=== PATIENT | female | born 1970 | race Caucasian/White ===

== ENCOUNTER 2017-07-09 12:14 | Inpatient (IN) | payer OTHER ==
[~2017-07-09] VITALS: Ht 165.1 cm; Wt 61.6 kg
[2017-07-09] MEDS ORDERED: ONDANSETRON 4 MG INJ IV STA (12:54)
[2017-07-09] MEDS ORDERED: SOD CHLORIDE 0.9% 1,000 ML IV STA (12:54)
[2017-07-09] MEDS ORDERED: PANTOPRAZOLE IV 80 MG in SOD CHLORIDE 0.9% 100 ML IVPB STA (12:54)
[2017-07-09] MEDS ORDERED: OCTREOTIDE 500 MCG in SOD CHLORIDE 0.9% 49 ML IV STA (12:54)
[2017-07-09] MEDS ORDERED: PANTOPRAZOLE IV 80 MG in SOD CHLORIDE 0.9% 100 ML IV STA (12:54)
[2017-07-09] MEDS ORDERED: OCTREOTIDE 50 MCG in SOD CHLORIDE 0.9% 25 ML IVPB STA (12:54)
--- NOTE | 2017-07-09 13:31 | RADRPT ---
PROCEDURE: XR Chest. CLINICAL INDICATION: Abdominal pain TECHNIQUE: Single frontal view of the chest was obtained COMPARISON: None FINDINGS: The heart and mediastinum are within normal limits. The lungs are grossly clear. The right hemidiaphragm is mildly elevated. There is no pleural effusion or pneumothorax. The bones and soft tissue show no acute change. IMPRESSION: 1. Very hypoventilatory study without acute abnormality. 2. The right hemidiaphragm is mildly elevated. RPTAT:AAJJ Physician Carlos Date Time Electronically viewed and signed by Qamar Johnson Physician on 07/09/2017 13:31 /
[2017-07-09 13:51] LABS: ABNORMAL IP MESSAGE 1; HEMOGLOBIN 7.8 g/dl (12.0-16.0); MEAN CORPUSCULAR HEMOGLOBIN 32.1 pg (29.0-33.0); MEAN CORPUSCULAR HGB CONC 33.9 g/dl (32.0-37.0); MEAN CORPUSCULAR VOLUME 94.7 fl (82.0-101.0); MEAN PLATELET VOLUME 10.5 fl (7.4-10.4); PLATELET COUNT 144 10^3/UL (140-415); RED BLOOD COUNT 2.43 10^6/ul (4.20-5.40); RED CELL DISTRIBUTION WIDTH 17.8 % (11.5-14.5); WHITE BLOOD COUNT 35.1 10^3/ul (4.8-10.8)
[2017-07-09 13:59] LABS: POSITIVE DIFF @See below
[2017-07-09 14:05] LABS: INR 2.87; PROTIME 30.5 Sec (12.2-14.2); PT RATIO 2.4
[2017-07-09 14:06] LABS: PARTIAL THROMBOPLASTIN TIME 54.4 Sec (25.0-35.0)
[2017-07-09 14:08] LABS: ALANINE AMINOTRANSFERASE 49 IU/L (13-69); ALBUMIN 2.7 g/dl (3.3-4.9); ALBUMIN/GLOBULIN RATIO 0.55; ALKALINE PHOSPHATASE 357 IU/L (42-121); ANION GAP 21 (8-16); ASPARTATE AMINO TRANSFERASE 63 IU/L (15-46); BILIRUBIN,TOTAL 19.9 mg/dl (0.2-1.3); BLOOD UREA NITROGEN 40 mg/dl (7-20); CALCIUM 8.3 mg/dl (8.4-10.2); CARBON DIOXIDE 16 mmol/L (21-31); CHLORIDE 106 mmol/L (97-110); CREATININE 1.89 mg/dl (0.44-1.00); GLUCOSE 91 mg/dl (70-220); SODIUM 140 mmol/L (135-144); TOTAL PROTEIN 7.6 g/dl (6.1-8.1)
[2017-07-09 14:20] LABS: TROPONIN-I < 0.012 ng/ml (0.00-0.12)
[2017-07-09] MEDS ORDERED: LIDOCAINE 1% (MPF) 5 ML VIAL SC ONE (14:30)
[2017-07-09] MEDS ORDERED: PANT40TA4 PO (14:41)
[2017-07-09] MEDS ORDERED: MULTI PO (14:41)
[2017-07-09] MEDS ORDERED: PRED20TA PO (14:42)
[2017-07-09] MEDS ORDERED: SPIR25TA PO (14:42)
[2017-07-09] MEDS ORDERED: LACT20SO2 PO (14:43)
[2017-07-09] MEDS ORDERED: FURO20TA3 PO (14:43)
[2017-07-09 14:49] LABS: ANISOCYTOSIS 2+ (0-0); MONOCYTES % (M) 3 % (0-11); PLATELET ESTIMATE NORMAL; POIKILOCYTOSIS 3+ (0-0); POLYCHROMASIA 3+ (0-0); RBC MORPHOLOGY COMMENT @See below
[2017-07-09] MEDS ORDERED: SODIUM CHLORIDE 0.9% 1L BAG IV* STA (16:21)
[2017-07-09] MEDS ORDERED: CEFEPIME 2GM/50 ML (PMX) 50 ML IVPB STA (16:21)
--- NOTE | 2017-07-09 16:25 | RADRPT ---
PROCEDURE: Chest x-ray CLINICAL INDICATION: PICC line placement TECHNIQUE: Chest single view COMPARISON: 07/09/2017 FINDINGS: There is interval placement left arm PICC line with tip at the right atrial SVC junction. The heart is normal in size. The pulmonary vessels are normal in caliber. There is persistent elevation righ t hemidiaphragm with mild basilar atelectasis. Lungs otherwise clear. The costophrenic angles are s harp. The visualized bony thorax is unremarkable. IMPRESSION: 1. Interval placement left arm PICC line with tip at the right atrial SVC junction RPTAT: HH .Jerrell Calixto MD, MD Date Time Electronically viewed and signed by .Jerrell Calixto MD, on 07/09/2017 16:25 .W/
[2017-07-09] MEDS ORDERED: VANCOMYCIN 1 GM (PMX) 250 ML IVPB ONE (16:30)
[2017-07-09] MEDS ORDERED: SOD CHLORIDE 0.9% 100 ML ONE (16:39)
--- NOTE | 2017-07-09 16:42 | RADRPT ---
PROCEDURE: US guidance for PICC line CLINICAL INDICATION: PICC line placement TECHNIQUE: Multiple real-time images were acquired of the patient's arm utilizing a high resolutio n transducer. This was performed by the PICC line nurse for venous access. COMPARISON: None FINDINGS: See impression. IMPRESSION: Ultrasound guidance for PICC line placement. There is a patent and compressible left upper extremity vein. RPTAT: AA Physician Patito Date Time Electronically viewed and signed by Russell Chan Physician on 07/09/2017 16:41 /
[2017-07-09 18:30] VITALS: TEMP 97.5
--- NOTE | 2017-07-09 19:01 | ERD ---
ER Documentation Chief Complaint Chief Complaint hypotension; generalized weakness; rectal bleed HPI This is a 47-year-old female with a history of liver cirrhosis and jaundice due to alcohol abuse. The patient is here because she had 2-3 episodes of bloody diarrhea today. The diarrhea was dark on 2 episodes in outsole caser color on one. She says she has no abdominal pain no fevers no cough no dysuria. She says she feels generally weak. The patient says that she was admitted at an outside hospital a few weeks ago for rectal bleeding and she underwent a colonoscopy and EGD which we do not know the results of nor does the patient. She denies any recent illness or fever says that she feels like her jaundice is getting worse. Addendum: Paperwork was obtained from [facility] the patient had bleeding esophageal varices with banding with alcoholic liver cirrhosis and autoimmune hepatitis as well as lactic acidosis on a stay at [facility] on June 22, 2017. She is currently taking Lasix, lactulose, pantoprazole, prednisolone, multivitamin, spironolactone ROS All systems reviewed and are negative except as per history of present illness. Medications Home Meds Reported Medications Furosemide* (Furosemide*) 20 Mg Tablet, 20 MG PO DAILY, #60 TAB 07/09/17 Lactulose* (Lactulose*) 20 Gm/30 Ml Solution, 20 GM PO BID, ML 07/09/17 Prednisone* (Prednisone*) 20 Mg Tab, 20 MG PO DAILY, TAB 07/09/17 Spironolactone* (Aldactone*) 25 Mg Tablet, 25 MG PO DAILY, #30 TAB 07/09/17 Multivitamins* (Theragran*) 1 Tab Tab, 1 TAB PO DAILY, TAB 07/09/17 Pantoprazole* (Pantoprazole*) 40 Mg Tablet.dr, 40 MG PO AC BREAKFAST, TAB 07/09/17 Allergies Allergies: Coded Allergies: No Known Allergy (Unverified , 07/09/17) PMhx/Soc Medical and Surgical Hx: pt denies Surgical Hx History of Surgery: No Hx Miscellaneous Medical Probl: Yes (LIVER CIRRHOSIS) Hx Alcohol Use: Yes (USED TO) Hx Substance Use: No Hx Tobacco Use: No Smoking Status: Former smoker FmHx Family History: No coronary disease Physical Exam Vitals Vital Signs Date Time Temp Pulse Resp B/P Pulse Ox O2 Delivery O2 Flow Rate FiO2 07/09/17 18:30 97.5 82 18 90/57 99 Nasal Cannula 2.0 07/09/17 18:00 97.9 79 16 87/58 98 Room Air 07/09/17 15:53 97.9 80 16 76/54 98 Room Air 07/09/17 14:38 97.9 81 16 68/48 98 07/09/17 12:34 97.2 105 18 75/47 98 Physical Exam Const: [Well-developed, cachectic Head: Atraumatic, normocephalic Eyes: Normal Conjunctiva, PERRLA, EOMI, icteric sclera, no nystagmus ENT: Normal External Ears, Nose and Mouth, moist mucus membranes. Neck: Full range of motion. No meningismus, no lymphadenopathy. Resp: Clear to auscultation bilaterally, no wheezing, rhonchi, rales Cardio: Regular rate and rhythm, no murmurs, S1 S2 present Abd: Soft, non tender x 4, distended. Ascites normal bowel sounds, no guarding or rebound, no pulsitile abdominal masses or bruits Skin: No petechiae or rashes, no ecchymosis , no maculopapular rash, jaundice Back: No midline or flank tenderness Ext: No cyanosis, +1 edema, FROM x 4, normal inspection, neurovascularly intact x 4 Neur: Awake and alert, STR 5/5 x 4, sensation intact x 4, no focal findings, cerebellum intact Psych: Normal Mood and Affect Result Diagram: 07/09/17 1330 07/09/17 1330 Results 24 hrs Laboratory Tests Test 07/09/17 13:30 07/09/17 16:40 White Blood Count 35.110^3/ul Red Blood Count 2.4310^6/ul Hemoglobin 7.8g/dl Hematocrit 23.0% Mean Corpuscular Volume 94.7fl Mean Corpuscular Hemoglobin 32.1pg Mean Corpuscular Hemoglobin Concent 33.9g/dl Red Cell Distribution Width 17.8% Platelet Count 25728^3/UL Mean Platelet Volume 10.5fl Neutrophils % % Segmented Neutrophils % (Manual) 88% Band Neutrophils % (Manual) 7% Lymphocytes % % Lymphocytes % (Manual) 2% Monocytes % % Monocytes % (Manual) 3% Eosinophils % % Basophils % % Nucleated Red Blood Cells % 0.0/100WBC Neutrophils # 10^3/ul Neutrophils # (Manual) 31.710^3/ul Band Neutrophils # 2.410^3/ul Absolute Lymphocytes (Manual) 0.710^3/ul Lymphocytes # 10^3/ul Monocytes # 10^3/ul Absolute Monocytes (Manual) 1.010^3/ul Eosinophils # 10^3/ul Basophils # 10^3/ul Nucleated Red Blood Cells # 10^3/ul White Cell Morphology Comment @See below Platelet Estimate NORMAL Polychromasia 3+ Poikilocytosis 3+ Anisocytosis 2+ Macrocytosis 2+ Red Cell Morphology Comment @See below Prothrombin Time 30.5Sec Prothrombin Time Ratio 2.4 INR International Normalized Ratio 2.87 Activated Partial Thromboplast Time 54.4Sec Sodium Level 140mmol/L Potassium Level 3.0mmol/L Chloride Level 106mmol/L Carbon Dioxide Level 16mmol/L Anion Gap 21 Blood Urea Nitrogen 40mg/dl Creatinine 1.89mg/dl Glucose Level 91mg/dl Calcium Level 8.3mg/dl Total Bilirubin 19.9mg/dl Direct Bilirubin 16.90mg/dl Indirect Bilirubin 3.0mg/dl Aspartate Amino Transf (AST/SGOT) 63IU/L Alanine Aminotransferase (ALT/SGPT) 49IU/L Alkaline Phosphatase 357IU/L Troponin I < 0.012ng/ml Total Protein 7.6g/dl Albumin 2.7g/dl Globulin 4.90g/dl Albumin/Globulin Ratio 0.55 Lactic Acid Level 2.9mmol/L Current Medications Medications (Trade) Dose Ordered Sig/Chris Route PRN Reason Start Time Stop Time Status Last Admin Dose Admin Sodium Chloride 1,000 ml @ 1,000 mls/hr Q1H STAT IV 07/09/17 12:54 07/09/17 13:53 DC 07/09/17 13:55 Pantoprazole 80 mg/Sodium Chloride 100 ml @ 400 mls/hr ONCE STAT IVPB 07/09/17 12:54 07/09/17 13:08 DC 07/09/17 13:56 Pantoprazole 80 mg/Sodium Chloride 100 ml @ 10 mls/hr ONCE STAT IV 07/09/17 12:54 07/09/17 22:53 07/09/17 14:24 Octreotide Acetate 50 mcg/ Sodium Chloride 26 ml @ 100 mls/hr Q16M STAT IVPB 07/09/17 12:54 07/09/17 13:09 DC 07/09/17 13:56 Octreotide Acetate/Sodium Chloride (Sandostatin/NS) 50 ml @ 5 mls/hr ONCE STAT IV 07/09/17 12:54 07/09/17 22:53 07/09/17 14:25 Ondansetron HCl (Zofran Inj) 4 mg ONCE STAT IV 07/09/17 12:54 07/09/17 13:01 DC 07/09/17 13:56 Lidocaine (Xylocaine 1% (Mpf)) 5 ml ONCE ONCE SC 07/09/17 14:30 07/09/17 14:31 DC 07/09/17 16:00 Sodium Chloride 1900 ml 1,900 ml BOLUS OVER 2 HOURS STAT IV* 07/09/17 16:21 07/09/17 16:22 DC 07/09/17 17:25 Cefepime HCl 50 ml @ 100 mls/hr ONCE STAT IVPB 07/09/17 16:21 07/09/17 16:50 DC 07/09/17 17:25 Vancomycin HCl 250 ml @ 125 mls/hr ONCE ONCE IVPB 07/09/17 16:30 07/09/17 18:29 DC 07/09/17 18:13 Sodium Chloride (NS) 100 ml @ ud STK-MED ONCE .ROUTE 07/09/17 16:39 07/09/17 16:40 DC 07/09/17 16:20 IV Flush (NS 10 ml) 10 ml PRN PRN IV IV PROTOCOL 07/09/17 17:00 Procedures/MDM PROCEDURE: XR Chest. CLINICAL INDICATION: Abdominal pain TECHNIQUE: Single frontal view of the chest was obtained COMPARISON: None FINDINGS: The heart and mediastinum are within normal limits. The lungs are grossly clear. The right hemidiaphragm is mildly elevated. There is no pleural effusion or pneumothorax. The bones and soft tissue show no acute change. IMPRESSION: 1. Very hypoventilatory study without acute abnormality. 2. The right hemidiaphragm is mildly elevated. RPTAT:AAJJ Qamar Johnson, Physician Date Time Electronically viewed and signed by Qamar Johnson Physician on 07/09/2017 13: 31 MC/ CC: LUNA TAN DO The patient was put on a Protonix drip and octreotide drip. The patient is having low blood pressure without tachycardia. The patient is on liter #2 right now. The patient's lactate is elevated at 2.9 patient is getting sepsis protocol antibiotics and IV fluids and blood cultures. The she has elevated white blood count of 35,000. Multiple repeat abdominal exams the patient has no abdominal pain whatsoever to be concerning for SBP. Urinalysis is currently pending.. Patient's acidotic low CO2 with prerenal azotemia. Patient is anemic with a hemoglobin of 7.1. She is received 2 units of packed red blood cells Patient's blood pressures been running in the 70-80 systolic. Heart rate has been in the 80s. Will continue some IV fluids first before starting pressors which is likely to come soon. I have called Dr. Sharp with GI to consult him on the case. We will order CAT scan to rule out any abdominal pathology and that she has no belly pain. Critical Care Time: 45 minutes Treatments/Evaluations: Close monitoring and treatment of unstable vital signs, cardiorespiratory, and neurologic status, while maintaining tight balance of fluid, respiratory, and cardiac interventions. This time includes discussing the case with the patient and the patient's family. This time does not include all procedures stated elsewhere in this record. This time also includes reviewing old records, labs and radiological studies. This time includes examining and re-examining the patient. Additionally, this time also includes arranging care with admitting and consulting physicians. PROCEDURE: Chest x-ray CLINICAL INDICATION: PICC line placement TECHNIQUE: Chest single view COMPARISON: 07/09/2017 FINDINGS: There is interval placement left arm PICC line with tip at the right atrial SVC junction. The heart is normal in size. The pulmonary vessels are normal in caliber. There is persistent elevation right hemidiaphragm with mild basilar atelectasis. Lungs otherwise clear. The costophrenic angles are sharp. The visualized bony thorax is unremarkable. IMPRESSION: 1. Interval placement left arm PICC line with tip at the right atrial SVC junction RPTAT: HH .Jerrell Calixto MD, MD Date Time Electronically viewed and signed by .Jerrell Calixto MD, on 07/09/2017 16:25 .W/ CC: LUNA TAN DO Departure Diagnosis: Primary Impression: Hypotension Hypotension type: unspecified hypotension type Qualified Code: I95.9 - Hypotension, unspecified hypotension type Additional Impressions: GI bleed GI bleed type/associated pathology: unspecified gastrointestinal hemorrhage type Qualified Code: K92.2 - Gastrointestinal hemorrhage, unspecified gastrointestinal hemorrhage type Leukocytosis Leukocytosis type: unspecified Qualified Code: D72.829 - Leukocytosis, unspecified type Condition: Serious LUNA TAN DO Jul 09, 2017 18:59
[2017-07-09] MEDS ORDERED: NORepinephrine 8MG/250 ML (PMX 250 ML IV STA (19:07)
[2017-07-09] MEDS ORDERED: NACL 0.9% 3 ML SYG IV SCH (20:00)
[2017-07-09] MEDS ORDERED: morphine 2 MG INJ IV PRN (20:00)
[2017-07-09] MEDS ORDERED: POTASSIUM CHLORIDE 250 ML IVPB ONE (20:00)
[2017-07-09] MEDS ORDERED: ONDANSETRON 4 MG INJ IV PRN (20:00)
[2017-07-09] MEDS: OCTREOTIDE 1 MG in SOD CHLORIDE 0.9% 95 ML IV SCH (20:30)
[2017-07-09] MEDS: PANTOPRAZOLE IV 80 MG in SOD CHLORIDE 0.9% 100 ML IV SCH (20:30)
--- NOTE | 2017-07-09 21:55 | RADRPT ---
PROCEDURE: CT Abdomen and Pelvis without contrast. CLINICAL INDICATION: Abdominal pelvic pain. Abdominal distension. Ascites. TECHNIQUE: CT scan of the abdomen and pelvis without contrast was performed on a multi-detector hi gh-resolution CT scanner. The patient was scanned without IV contrast. Coronal and sagittal reformat hortencia images were obtained from the axial source images. CTDI equals 13.78 mGy, and DLP equals 876.45 mGy-cm. One or more of the following dose reduction techniques were used: - Automated exposure control. - Adjustment of the mA and/or kV according to patient size. - Use of iterative reconstruction technique. COMPARISON: None. FINDINGS: Lower thorax: Patchy infiltration in the right middle lobe, left lingula, and lower lungs bilaterall y. Marked cardiomegaly with a small pericardial effusion. Moderate asymmetric elevation of the right hemidiaphragm. Central line is in place with the tip going down to the right atrium. Liver: Grossly unremarkable. No focal mass. Biliary: Tiny layering sludge and stones. No biliary dilatation. Pancreas: Normal. Spleen: Normal. Adrenal Glands: Normal. Genitourinary: Normal. Gastrointestinal: Significant abnormal circumferential thickening and edema of the wall of the stoma ch. Mild edema of the wall of the C-loop of the duodenum. Significant thickening of the wall of the colon. Evaluation is limited due to lack of oral and IV contrast. Lymph nodes: Normal. Vascular: Normal. Peritoneum/mesentery: Large volume abdominal pelvic ascites with distension of the abdominal cavity. Severe diffuse mesenteric engorgement and edema. Diffuse edema of the abdominal omentum as well. Reproductive organs: Massive enlargement and nodularity of the uterus with a large dominant 14.6 cm mass lesion, likely due to multiple large uterine fibroids. Musculoskeletal: Mild third spacing and edema of the subcutaneous tissues of the abdominal pelvic wa ll and hips and upper thighs. IMPRESSION: 1. Massive abdominal pelvic ascites with severe diffuse omental and mesenteric edema. 2. Thickening and edema of the wall of the stomach, C-loop of the duodenum, and portions of the lar ge bowel. Further evaluation is warranted. 3. Large mass lesion with multilobulated nodular thickening and enlargement of the uterus, likely d ue to an enlarged leiomyomatous uterus. The ovaries are not well visualized. 4. Third spacing and edema of the subcutaneous tissues of the body. 5. Patchy infiltration within the visualized lungs bilaterally. Atelectasis is most likely. Superim posed pneumonia is not entirely excluded. 6. Cardiomegaly with small circumferential pericardial effusion. RPTAT: HMJB .Godwin Moyer MD, Date Time Electronically viewed and signed by .Godwin Moyer MD, on 07/09/2017 21:54 .B/
[2017-07-09 23:15] VITALS: PULSE 89
[2017-07-09 23:32] VITALS: Ht 165.1 cm; Wt 61.6 kg
[2017-07-10] VITALS (87 sets, daily range): BP systolic 77–124; BP diastolic 41–106; PULSE 69–101; RESP 14–35
[2017-07-10] MEDS: D5W-0.45 NACL + KCL 20 MEQ 1,000 ML IV SCH ×3 (00:01→12:50)
[2017-07-10] MEDS ORDERED: NORepinephrine 8MG/250 ML (PMX 250 ML IV SCH (05:30)
[2017-07-10 05:37] LABS: ABNORMAL IP MESSAGE 1; BASOPHIL # 0.1 10^3/ul (0.0-0.1); BASOPHILS % 0.3 % (0.0-2.0); EOSINOPHILS % 0.1 % (0.0-7.0); HEMATOCRIT 27.8 % (37.0-47.0); HEMOGLOBIN 9.9 g/dl (12.0-16.0); LYMPHOCYTES # 0.7 10^3/ul (0.8-2.9); LYMPHOCYTES % 1.8 % (15.0-51.0); MEAN CORPUSCULAR HGB CONC 35.6 g/dl (32.0-37.0); MEAN CORPUSCULAR VOLUME 87.1 fl (82.0-101.0); MEAN PLATELET VOLUME 10.4 fl (7.4-10.4); MONOCYTE # 1.4 10^3/ul (0.3-0.9); MONOCYTES % 3.6 % (0.0-11.0); NEUTROPHIL # 36.1 10^3/ul (1.6-7.5); PLATELET COUNT 143 10^3/UL (140-415); RED BLOOD COUNT 3.19 10^6/ul (4.20-5.40); RED CELL DISTRIBUTION WIDTH 19.3 % (11.5-14.5); WHITE BLOOD COUNT 38.9 10^3/ul (4.8-10.8)
[2017-07-10 05:41] LABS: NEUTROPHILS % 92.7 % (39.0-77.0); POSITIVE DIFF @See below
[2017-07-10 06:07] LABS: ALBUMIN 2.4 g/dl (3.3-4.9); ALBUMIN/GLOBULIN RATIO 0.55; BILIRUBIN,INDIRECT 2.8 mg/dl (0-1.1); CALCIUM 7.6 mg/dl (8.4-10.2); CREATININE 1.7 mg/dl (0.44-1.00); MAGNESIUM 1.7 mg/dl (1.7-2.5); PHOSPHORUS 5.7 mg/dl (2.5-4.9); TOTAL PROTEIN 6.7 g/dl (6.1-8.1)
[2017-07-10 06:16] LABS: BILIRUBIN,DIRECT 15.4 mg/dl (0.00-0.20); BILIRUBIN,TOTAL 18.2 mg/dl (0.2-1.3)
[2017-07-10] MEDS: PANTOPRAZOLE IV 80 MG in SOD CHLORIDE 0.9% 100 ML IV SCH ×2 (06:18→17:29)
[2017-07-10] MEDS ORDERED: ALBUMIN HUMAN 25% 100 ML IV SCH (07:00)
--- NOTE | 2017-07-10 07:03 | HP ---
Date/Time of Note Date/Time of Note DATE: 07/10/17 TIME: 06:45 Assessment/Plan VTE Prophylaxis VTE Prophylaxis Intervention: SCD's Lines/Catheters IV Catheter Type (from [facility]): Peripheral IV Urinary Cath still in place: No Assessment/Plan Assessment/Plan This is a 47-year-old female with a history of decompensated alcoholic liver disease/cirrhosis with ascites and esophageal varices status post recent banding , and questionable 3 of autoimmune hepatitis presents with rectal bleeding and found to be in septic shock, severely elevated bilirubin, renal insufficiency and pneumonia. 1. Shock, combination of septic from pneumonia and possible SBP as well as hypovolemic from rectal bleeding -Continue pressure support as needed -Broad-spectrum IV antibiotics -Urine culture, blood culture and once shock improves, paracentesis for diagnostic and therapeutic purposes -ID consult 2. GI bleed -Continue blood transfusion -Protonix and octreotide drip -GI consult -Notes that patient underwent EGD 2 weeks ago at [facility] with finding of esophageal varices and is status post banding 3. End-stage liver disease, with severely elevated bilirubin, direct predominant -Will order MRCP to evaluate for obstructive process -GI consult -Once shock improves/results, paracentesis will be performed 4. Presumed [place], most likely from volume depletion from septic shock -will give albumin -Continue pressure support -Renal ultrasound and nephrology consult HPI/ROS Admit Date/Time Admit Date/Time Jul 09, 2017 at 19:46 Hx of Present Illness This is a 47-year-old female with a history of decompensated end-stage alcoholic liver disease/cirrhosis with ascites and esophageal varices, questionable autoimmune hepatitis who presented to the ER complaining of rectal bleeding, generalized weakness and jaundice. Patient was admitted at [facility] 2 weeks ago for rectal bleeding. EGD showed esophageal varices and as she is status post banding. For the past 2 days, she has been having bloody diarrhea and has been feeling weak. When she presented to the ER, she was hypotensive with a blood pressure of 75/ 47 with a heart rate of 105. She has a multiple lab abnormalities including WBC of 35,000, hemoglobin 7.8, creatinine 1.9, BUN 40, bicarb 16, INR 2.9, total bilirubin of almost 20 was direct bilirubin of 17, alk phos 357, AST 63, potassium 3.0. CT abdomen/pelvis shows massive ascites, large leiomyomatous uterus and bilateral patchy infiltrate of the lungs with probable superimposed pneumonia. PMH/Family/Social Social History Smoking Status: Former smoker Exam/Review of Systems Vital Signs Vitals Vital Signs Date Time Temp Pulse Resp B/P Pulse Ox O2 Delivery O2 Flow Rate FiO2 07/10/17 06:00 88 24 87/65 100 Room Air 07/10/17 04:00 98.0 07/10/17 02:00 2.0 Intake and Output 07/09/17 07/09/17 07/10/17 15:00 23:00 07:00 Intake Total 897.745 ml Balance 897.745 ml Exam Constitutional: other (Appears weak. Jaundiced) Eyes: icteric Respiratory: diminished breath sounds Cardiovascular: other (Tachycardic with regular rhythm) Gastrointestinal: distended, tender Labs Result Diagram: 07/10/17 0500 07/10/17 0500 Medications Medications Current Medications IV Flush 10 ml 10 ml PRN PRN IV IV PROTOCOL; Start 07/09/17 at 17:00 Potassium Chloride/Dextrose/ Sod Cl (D5-1/2ns + KCl 20 Meq) 1,000 ml @ 100 mls/ hr Q10H IV Last administered on 07/10/17 00:01; Admin Dose 100 MLS/HR; Start 07/09/17 at 19:42 Ondansetron HCl (Zofran Inj) 4 mg Q6H PRN IV NAUSEA AND/OR VOMITING; Start 07/09/17 at 20:00 Morphine Sulfate 2 mg 2 mg Q4H PRN IV SEVERE PAIN LEVEL 7-10; Start 07/09/17 at 20:00 Pantoprazole 80 mg/Sodium Chloride 100 ml @ 10 mls/hr Q10H IV Last administered on 07/10/17 06:18; Admin Dose 10 MLS/HR; Start 07/09/17 at 20:30 Octreotide Acetate 1 mg/ Sodium Chloride 100 ml @ 5 mls/hr Q20H IV ; Start 07/09 at 20:30 Norepinephrine 250 ml @ 1.875 mls/ hr TITRATE IV Last administered on 05:29; Admin Dose 28.125 MLS/HR; Start 07/10/17 at 05:30; Stop 07/10/17 at 10:59 Norepinephrine/ Dextrose (Levophed/D5W) 500 ml @ 1.87 mls/hr TITRATE IV ; Start 07/10/17 at 11:00 Methylprednisolone Sodium Succinate 40 mg 40 mg ONCE ONCE IV ; Start 07/10/17 at 07:30; Stop 07/10/17 at 07:31; Status UNV Piperacillin Sod/ Tazobactam Sod (Zosyn 3.375gm/ 50 ml (Pmx)) 50 ml @ 100 mls/ hr Q6 IVPB ; Start 07/10/17 at 07:30; Status UNV JHON FARRELL MD Jul 10, 2017 07:02
[2017-07-10] MEDS ORDERED: METHYLPREDNISOLONE 40 MG INJ IV ONE (07:30)
[2017-07-10] MEDS ORDERED: VANCOMYCIN IV PER PHARMACY XX SCH (07:30)
[2017-07-10] MEDS: PIPER-TAZO 3.375 GM IV (PMX) 50 ML IVPB SCH ×3 (08:39→22:30)
--- NOTE | 2017-07-10 08:56 | RADRPT ---
PROCEDURE: US Renal CLINICAL INDICATION: Acute renal insufficiency. TECHNIQUE: Multiple sonographic images of the kidneys and bladder were obtained. Evaluation of th e kidneys and bladder was performed as well with akers scale and color and Doppler evaluation using a curved array transducer. The images were reviewed on a high-resolution PACS workstation. COMPARISON: CT abdomen pelvis 07/09/2017. FINDINGS: The right kidney measures 12.0 x 4.7 x 4.9 cm. The left kidney measures 8.2 x 4.6 x 4.9 cm. Renal parenchyma appears echogenic bilaterally. There is no mass, calculus, or obstructive uropathy. No perinephric fluid collection is seen. Urinary bladder was not visualized. There is a moderate amount of ascites present. IMPRESSION: 1. Echogenic renal parenchyma suggesting medical renal disease. 2. Ascites. RPTAT: AACC Physician Sj Date Time Electronically viewed and signed by Physician Sj on 07/10/2017 08:56 /
[2017-07-10] MEDS: OCTREOTIDE 1 MG in SOD CHLORIDE 0.9% 95 ML IV SCH (10:34)
[2017-07-10 12:44] LABS: HEMATOCRIT 29.3 % (37.0-47.0); HEMOGLOBIN 10.7 g/dl (12.0-16.0)
--- NOTE | 2017-07-10 12:50 | CONS ---
DATE OF ADMISSION: 07/09/2017 DATE OF CONSULTATION: 07/10/2017 TYPE OF CONSULTATION: Nephrology. REASON FOR CONSULTATION: Acute kidney injury. REQUESTING PHYSICIAN: . HISTORY OF PRESENT ILLNESS: This is a 47-year-old female with a past medical history of decompensat ed ETOH cirrhosis with ascites, esophageal varices, and encephalopathy who presents to [facility] Emergency Room with rectal bleeding, generalized weakness, and jaundice and increased abdomin al swelling. The patient was recently admitted to [facility] 2 weeks with rectal bleeding. At that time, EGD showed esophageal varices, the patient was status post banding. The patient 2 d ays ago started having bloody diarrhea. She came to the emergency room. Upon arrival, the patient had a CT scan of abdomen and pelvis, which showed massive ascites, patchy infiltrates in the lung, w ith possible superimposed pneumonia. Her laboratory drawn at the time showed a BUN of 40, creatinin e 1.9, hemoglobin 7.8, white count 35,000. The patient had a T-bili 15.4. The patient was transfer red to the intensive care unit where she was placed on IV fluids, IV antibiotics, IV pressors. In terms of the patient's renal history, the patient denies any prior history of chronic kidney dise ase. The patient's renal function, creatinine has been noted to be about 1.7 to 1.8/dL. There have been no episodes of any frothy urine, hemoptysis, hematemesis. PAST MEDICAL HISTORY: History of end-stage liver disease. PAST SURGICAL HISTORY: None. ALLERGIES: NONE. FAMILY HISTORY: Noncontributory. SOCIAL HISTORY: Positive for ETOH use. MEDICATIONS: The patient's medications have been reviewed. REVIEW OF SYSTEMS: A 14-point review of systems was conducted. Pertinent positives stated in the H PI, otherwise negative. PHYSICAL EXAMINATION: VITAL SIGNS: Blood pressure is 98/68, respirations 29, pulse 85, temperature 97.6. GENERAL: The patient is weak and frail. HEENT: Head is normocephalic. The patient has scleral icterus. HEART: Regular rate. LUNGS: Show diminished breath sounds at base. ABDOMEN: Soft, positive ascites, positive fluid wave. EXTREMITIES: Negative for clubbing, cyanosis. No edema. DERMATOLOGIC: No rashes. The patient has noted jaundice. MUSCULOSKELETAL: No joint effusions. NEUROLOGIC: No focal deficits. LABORATORY DATA: Shows sodium 141, potassium 4.0, chloride 113, BUN 38, creatinine 1.70. Lactic ac id 2.9, direct bilirubin 15.40. White count 38.9, hemoglobin 9.9, platelet count 143. The patient' s renal ultrasound shows echogenic renal parenchyma consistent with medical renal disease. CT scan of abdomen and pelvis as stated in HPI. Urinalysis is pending. ASSESSMENT AND PLAN: This is a 47-year-old female who presents with: 1. Nonoliguric acute kidney injury on top of possible chronic kidney disease with unknown baseline creatinine. Etiology of current acute kidney injury is likely secondary to acute tubular necrosis d ue to shock, ischemic hypoperfusion. The patient is disqualified from a formal HRS diagnosis given the underlying shock, despite the fact that the patient may have HRS pathophysiology. Recommendatio ns at this point would be to check a UA with microanalysis. We will check urine electrolytes. The patient's renal ultrasound was reviewed. No evidence of obstruction. Would continue current treatm ent plan of pressor support of Levophed. Continue IV albumin. Continue IV antibiotics. Would othe rwise continue supportive care, renally dose all meds, avoid nephrotoxins. 2. Metabolic acidosis secondary to sepsis, lactic acidosis. Continue to monitor bicarbonate levels . 3. Mineral bone disorder. Continue to monitor calcium and phosphorus levels. 4. Anemia. Monitor hemoglobin and hematocrit levels. 5. Acute Decompensated cirrhosis with underlying gastrointestinal bleed and ascites. Would recomme nd to continue current medical management. Consider paracentesis. We will follow up with primary t eam. 6. Septic shock secondary to pneumonia. Continue current antibiotic regimen. Continue pressor sup port, maintain MAP above 65. Continue IV hydration. 7. Acute gastrointestinal bleed secondary to possible varices. Continue Protonix and octreotide dr ip. 8. End-stage liver disease. Continue to monitor. Continue supportive care. The patient has a mar kedly elevated MELD score, would consider hospice evaluation. 9. Leukocytosis. Again, this may be secondary to sepsis, recent prednisone use, possibly ETOH hepa titis, would defer to primary team. Consider GI evaluation. Thank you very much for this interesting consult. It will be a pleasure to follow the patient with you throughout the hospital course. Dictated By: CATHY RILEY/LEONOR Conf#: [id number] DID#: [id number]
--- NOTE | 2017-07-10 13:09 | RADRPT ---
PROCEDURE: MRCP. CLINICAL INDICATION: Liver failure, jaundice, ascites. TECHNIQUE: MRCP was performed. Patient was examined without contrast. 3-D coronal rotating MIP i mages of the biliary tree are available for review. COMPARISON: None available FINDINGS: Extensive dielectric artifact significantly limits evaluation. Liver surface is nodular, suggesting cirrhosis. No gross evidence of focal hepatic mass is identifie d. Mild hepatomegaly (18 cm) and splenomegaly (13 cm) are noted. Gallbladder, biliary tree, pancreas and stomach are not well evaluated. No gross evidence of biliary dilatation is identified. Adrenal glands and kidneys are unremarkable. No obstructive uropathy is identified. Abdominal aorta is normal in caliber. No retroperitoneal lymphadenopathy is seen. Large amount of as cites is present. The surrounding osseous structures are grossly unremarkable. IMPRESSION: 1. Extensive artifact significantly limits evaluation. 2. Liver surface is nodular, concerning for cirrhosis. There is mild hepatosplenomegaly. 3. Gallbladder and biliary tree are not well evaluated. No gross evidence of biliary dilatation is seen. 4. Large amount of ascites is present. RPTAT: AAOO .Bg Teixeira MD, MD Date Time Electronically viewed and signed by .Bg Teixeira MD, MD on 07/10/2017 13:09 .R/
--- NOTE | 2017-07-10 13:23 | CONS ---
Date/Time of Note Date/Time of Note DATE: 07/10/17 TIME: 12:56 Assessment/Plan Assessment/Plan Chief Complaint/Hosp Course Summary Assessment and Plan: Assessment: GI bleed/anemia/2 units PRBC given Likely related to esophageal varices End-stage liver disease with ascites- Alcoholic hepatitis Discriminant function 98.2- Leukocytosis R/o SBP vs r/t alcoholic hepatitis Hyperbilirubinemia likely r/t ESLD MRCP-No gross evidence of biliary dilatation is seen, however gallbladder and biliary tree are not well evaluated. Shock- r/o SBP vs hypovolemic r/t GI bleed Acute kidney injury Plan: Keep NPO Tranfuse 3 units FFP prior to EGD EGD today Endoscopy - risks/benefits/alternatives/indications of procedure and sedation/ anesthesia discussed with patient who states understanding and gives informed consent to proceed. Questions were answered. Will check ammonia, afp Patient will need paracentesis with diagnostic workup when stable enough to tolerate procedure Will start Xifaxan/lactulose Continue octreotide and PPI therapy Patient is seen in collaboration with Dr. Sharp Chief Complaint/Reason for Visit: GI bleed/anemia- likely related to esophageal varices Hepatitis likely secondary to alcohol use History of Present Illness: This is a 47-year-old female with a history of decompensated end-stage liver disease/cirrhosis with ascites and esophageal varices, likely related to alcohol use. Who presented to the ER complaining of rectal bleeding, generalized weakness and jaundice. Patient was recently admitted to [facility] for rectal bleeding. EGD was completed positive for esophageal varices and banded at that time. On examination patient is increasingly confused most of HPI obtained from medical records. Apparently for the past 2 days, she has been having bloody diarrhea and has been feeling weak. With initial lab workup patient showed to be anemic hemoglobin 7.8 hematocrit 23. Two units of PRBCs were given, upon reevaluation H/H increased to 10.7/29.3. WBCs 38.9, AST 63, ALT 49, bilirubin 18.2, alkaline phosphatase 308, albumin 2.4, PT 30.5, INR 2.87. MRCP reviewed showing extensive artifact significantly limits evaluation, liver surface is nodular, concerning for cirrhosis. There is mild hepatosplenomegaly, gallbladder and biliary tree are not well evaluated. No gross evidence of biliary dilatation is seen, large amount of ascites is present. Patient will need diagnostic paracentesis once appropriate for procedure. With discriminant function of 98.2 patient may benefit from steroid therapy. We will transfuse 3 units of FFP today and plan for EGD this evening, check AFP, ammonia, c-diff, (for diarrhea and leukocytosis , although unlikely). Will start Xifaxan and lactulose. Further recommendations will be given post EGD Past Medical History: Alcohol use ESLD with ascites and esophageal varices Allergies: No known allergies Problems: Consultation Date/Type/Reason Admit Date/Time Jul 09, 2017 at 19:46 Date of Consultation: Jul 10, 2017 Type of Consultation: GI Reason for Consultation GI bleed Constitutional: disoriented Respiratory: no complaints Cardiovascular: no complaints Gastrointestinal: blood, decreased appetite Musculoskeletal: other (Weakness) Past Medical History Medical History: other (End-stage liver disease with ascites) Family History Significant Family History: other (Denies family history of colon cancer) Social History Alcohol Use: heavy (Drank 1 bottle of wine daily for the past 4 years) Smoking Status: Former smoker Exam/Review of Systems Vital Signs Vitals Vital Signs Date Time Temp Pulse Resp B/P Pulse Ox O2 Delivery O2 Flow Rate FiO2 07/10/17 11:48 98.0 23 97/70 100 Room Air 07/10/17 10:30 84 07/10/17 02:00 2.0 Intake and Output 07/09/17 07/09/17 07/10/17 14:59 22:59 06:59 Intake Total 897.745 ml Balance 897.745 ml Exam Psych: confusion Head: atraumatic, normocephalic Eyes: icteric ENMT: nl external ears & nose Neck: non-tender, supple Respiratory: diminished breath sounds Cardiovascular: regular rate and rhythm Gastrointestinal: ascites, bowel sounds, distended, firm, non-tender, No mass, No rebound or guarding, No surgical scars, No tender Genitourinary - Female: nl external genitalia Musculoskeletal: muscle weakness Results Result Diagram: 07/10/17 1226 07/10/17 0500 Results 24 hrs Laboratory Tests Test 07/09/17 13:30 07/09/17 16:40 07/10/17 05:00 07/10/17 05:08 White Blood Count 35.1 H 38.9 H Red Blood Count 2.43 L 3.19 #L Hemoglobin 7.8 L 9.9 #L Hematocrit 23.0 L 27.8 #L Mean Corpuscular Volume 94.7 87.1 Mean Corpuscular Hemoglobin 32.1 31.0 Mean Corpuscular Hemoglobin Concent 33.9 35.6 Red Cell Distribution Width 17.8 H 19.3 H Platelet Count 144 143 Mean Platelet Volume 10.5 H 10.4 Neutrophils % 92.7 H Segmented Neutrophils % (Manual) 88 H Band Neutrophils % (Manual) 7 H Lymphocytes % 1.8 L Lymphocytes % (Manual) 2 L Monocytes % 3.6 Monocytes % (Manual) 3 Eosinophils % 0.1 Basophils % 0.3 Nucleated Red Blood Cells % 0.0 0.0 Neutrophils # 36.1 H Neutrophils # (Manual) 31.7 H Band Neutrophils # 2.4 H Absolute Lymphocytes (Manual) 0.7 L Lymphocytes # 0.7 L Monocytes # 1.4 H Absolute Monocytes (Manual) 1.0 H Eosinophils # 0.0 Basophils # 0.1 Nucleated Red Blood Cells # 0.0 White Cell Morphology Comment @See below Platelet Estimate NORMAL Polychromasia 3+ Poikilocytosis 3+ Anisocytosis 2+ Macrocytosis 2+ Red Cell Morphology Comment @See below Prothrombin Time 30.5 H Prothrombin Time Ratio 2.4 INR International Normalized Ratio 2.87 Activated Partial Thromboplast Time 54.4 H Sodium Level 140 141 Potassium Level 3.0 L 4.0 Chloride Level 106 113 H Carbon Dioxide Level 16 L 16 L Anion Gap 21 H 16 Blood Urea Nitrogen 40 H 38 H Creatinine 1.89 H 1.70 H Glucose Level 91 95 Calcium Level 8.3 L 7.6 L Total Bilirubin 19.9 H 18.2 H Direct Bilirubin 16.90 *H 15.40 *H Indirect Bilirubin 3.0 H 2.8 H Aspartate Amino Transf (AST/SGOT) 63 H 63 H Alanine Aminotransferase (ALT/SGPT) 49 49 Alkaline Phosphatase 357 H 308 H Troponin I < 0.012 Total Protein 7.6 6.7 Albumin 2.7 L 2.4 L Globulin 4.90 H 4.30 H Albumin/Globulin Ratio 0.55 0.55 Serum HCG, Qualitative NEGATIVE Lactic Acid Level 2.9 *H Phosphorus Level 5.7 H Magnesium Level 1.7 Lab Scanned Report BLOOD TRANSFUSION Test 07/10/17 12:26 Hemoglobin 10.7 L Hematocrit 29.3 L Medications Medications Current Medications IV Flush 10 ml 10 ml PRN PRN IV IV PROTOCOL; Start 07/09/17 at 17:00 Potassium Chloride/Dextrose/ Sod Cl (D5-1/2ns + KCl 20 Meq) 1,000 ml @ 100 mls/ hr Q10H IV Last administered on 07/10/17 00:01; Admin Dose 100 MLS/HR; Start 07/09/17 at 19:42 Ondansetron HCl (Zofran Inj) 4 mg Q6H PRN IV NAUSEA AND/OR VOMITING; Start 07/09/17 at 20:00 Morphine Sulfate 2 mg 2 mg Q4H PRN IV SEVERE PAIN LEVEL 7-10; Start 07/09/17 at 20:00 Pantoprazole 80 mg/Sodium Chloride 100 ml @ 10 mls/hr Q10H IV Last administered on 07/10/17 06:18; Admin Dose 10 MLS/HR; Start 07/09/17 at 20:30 Octreotide Acetate 1 mg/ Sodium Chloride 100 ml @ 5 mls/hr Q20H IV Last administered on 07/10/17 10:34; Admin Dose 5 MLS/HR; Start 07/09/17 at 20:30 Norepinephrine 16 mg/Dextrose 500 ml @ 1.87 mls/hr TITRATE IV ; Start 07/10/17 at 11:00 Piperacillin Sod/ Tazobactam Sod 50 ml @ 100 mls/hr Q8 IVPB Last administered on 07/10/17 08:39; Admin Dose 100 MLS/HR; Start 07/10/17 at 07:30 Vancomycin HCl 250 ml @ 125 mls/hr Q24H IVPB ; Start 07/10/17 at 18:00 Albumin Human (Albumin Human 25%) 100 ml @ 100 mls/hr Q8H IV ; Start 07/10/17 at 16:00; Stop 07/12/17 at 00:59 Rifaximin (Xifaxan) 550 mg BID PO ; Start 07/10/17 at 21:00 Copies To: CC: DEMARIO SHARP MD, VICTORIA Jul 10, 2017 13:07
--- NOTE | 2017-07-10 13:23 | PN ---
Date/Time of Note Date/Time of Note DATE: 07/10/17 TIME: 13:22 Assessment/Plan VTE Prophylaxis VTE Prophylaxis Intervention: SCD's Lines/Catheters IV [facility]ter [facility]from [facility] Peripheral IV Urinary Cath still in place: No Assessment/Plan Chief Complaint/Hosp Course Patient is a 47-year-old female with a past medical history of alcoholic end- stage liver disease with ascites and esophageal varices who presents in shock and GI bleed Assessment and plan Septic shock, questionable GI source GI bleed, questionable esophageal varices Esophageal varices End-stage liver disease Elevated lactic acid Anion gap metabolic acidosis Acute kidney injury versus chronic kidney disease Elevated bilirubin Elevated AST Jaundice Alcoholism -In ICU, on norepinephrine, on octreotide and PPI drip. GI and nephrology has been consulted. ID has also been consulted, appreciate recommendations -Broad-spectrum antibiotics, blood cultures pending, repeat lactic pending -EGD today per GI, FFP before procedure -Continue albumin for 6 doses total -Supportive care, titrate off norepinephrine as able -We will defer to GI for paracentesis, questionable due to septic shock -Supportive care, still monitored closely in the ICU Problems: Subjective 24 Hr Interval Summary Free Text/Dictation feels better than admission, but still unwell. no breathing issues. Exam/Review of Systems Vital Signs Vitals Vital Signs Date Time Temp Pulse Resp B/P Pulse Ox O2 Delivery O2 Flow Rate FiO2 07/10/17 11:48 98.0 23 97/70 100 Room Air 07/10/17 10:30 84 07/10/17 02:00 2.0 Intake and Output 07/09/17 07/09/17 07/10/17 15:00 23:00 07:00 Intake Total 1037.745 ml Balance 1037.745 ml Exam Physical exam General: Patient is laying in bed and answers questions appropriately, jaundiced Mentation: Patient is alert and oriented 4, Head: Normocephalic atraumatic Eyes: EOMI, pupils reactive to light, scleral icterus Neck: Supple, nontender, midline Respiratory: Clear to auscultation bilaterally Cardiovascular: regular rate, no obvious murmurs Gastrointestinal: mildly tender to palpation, bowel sounds heard. distended abdomen. Neurological: Moves all extremities spontaneously Skin: No new skin lesions, LE edema Results Result Diagram: 07/10/17 1226 07/10/17 0500 Results 24 hrs Laboratory Tests Test 07/09/17 13:30 07/09/17 16:40 07/10/17 05:00 07/10/17 05:08 White Blood Count 35.1 H 38.9 H Red Blood Count 2.43 L 3.19 #L Hemoglobin 7.8 L 9.9 #L Hematocrit 23.0 L 27.8 #L Mean Corpuscular Volume 94.7 87.1 Mean Corpuscular Hemoglobin 32.1 31.0 Mean Corpuscular Hemoglobin Concent 33.9 35.6 Red Cell Distribution Width 17.8 H 19.3 H Platelet Count 144 143 Mean Platelet Volume 10.5 H 10.4 Neutrophils % 92.7 H Segmented Neutrophils % (Manual) 88 H Band Neutrophils % (Manual) 7 H Lymphocytes % 1.8 L Lymphocytes % (Manual) 2 L Monocytes % 3.6 Monocytes % (Manual) 3 Eosinophils % 0.1 Basophils % 0.3 Nucleated Red Blood Cells % 0.0 0.0 Neutrophils # 36.1 H Neutrophils # (Manual) 31.7 H Band Neutrophils # 2.4 H Absolute Lymphocytes (Manual) 0.7 L Lymphocytes # 0.7 L Monocytes # 1.4 H Absolute Monocytes (Manual) 1.0 H Eosinophils # 0.0 Basophils # 0.1 Nucleated Red Blood Cells # 0.0 White Cell Morphology Comment @See below Platelet Estimate NORMAL Polychromasia 3+ Poikilocytosis 3+ Anisocytosis 2+ Macrocytosis 2+ Red Cell Morphology Comment @See below Prothrombin Time 30.5 H Prothrombin Time Ratio 2.4 INR International Normalized Ratio 2.87 Activated Partial Thromboplast Time 54.4 H Sodium Level 140 141 Potassium Level 3.0 L 4.0 Chloride Level 106 113 H Carbon Dioxide Level 16 L 16 L Anion Gap 21 H 16 Blood Urea Nitrogen 40 H 38 H Creatinine 1.89 H 1.70 H Glucose Level 91 95 Calcium Level 8.3 L 7.6 L Total Bilirubin 19.9 H 18.2 H Direct Bilirubin 16.90 *H 15.40 *H Indirect Bilirubin 3.0 H 2.8 H Aspartate Amino Transf (AST/SGOT) 63 H 63 H Alanine Aminotransferase (ALT/SGPT) 49 49 Alkaline Phosphatase 357 H 308 H Troponin I < 0.012 Total Protein 7.6 6.7 Albumin 2.7 L 2.4 L Globulin 4.90 H 4.30 H Albumin/Globulin Ratio 0.55 0.55 Serum HCG, Qualitative NEGATIVE Lactic Acid Level 2.9 *H Phosphorus Level 5.7 H Magnesium Level 1.7 Lab Scanned Report BLOOD TRANSFUSION Test 07/10/17 12:26 Hemoglobin 10.7 L Hematocrit 29.3 L Medications Medications Current Medications IV Flush 10 ml 10 ml PRN PRN IV IV PROTOCOL; Start 07/09/17 at 17:00 Potassium Chloride/Dextrose/ Sod Cl (D5-1/2ns + KCl 20 Meq) 1,000 ml @ 100 mls/ hr Q10H IV Last administered on 07/10/17 12:50; Admin Dose 100 MLS/HR; Start 07/09/17 at 19:42 Ondansetron HCl (Zofran Inj) 4 mg Q6H PRN IV NAUSEA AND/OR VOMITING; Start 07/09/17 at 20:00 Morphine Sulfate 2 mg 2 mg Q4H PRN IV SEVERE PAIN LEVEL 7-10; Start 07/09/17 at 20:00 Pantoprazole 80 mg/Sodium Chloride 100 ml @ 10 mls/hr Q10H IV Last administered on 07/10/17 06:18; Admin Dose 10 MLS/HR; Start 07/09/17 at 20:30 Octreotide Acetate 1 mg/ Sodium Chloride 100 ml @ 5 mls/hr Q20H IV Last administered on 07/10/17 10:34; Admin Dose 5 MLS/HR; Start 07/09/17 at 20:30 Norepinephrine 16 mg/Dextrose 500 ml @ 1.87 mls/hr TITRATE IV Last administered on 07/10/17 12:52; Admin Dose 22.5 MLS/HR; Start 07/10/17 at 11:00 Piperacillin Sod/ Tazobactam Sod 50 ml @ 100 mls/hr Q8 IVPB Last administered on 07/10/17 08:39; Admin Dose 100 MLS/HR; Start 07/10/17 at 07:30 Vancomycin HCl 250 ml @ 125 mls/hr Q24H IVPB ; Start 07/10/17 at 18:00 Albumin Human (Albumin Human 25%) 100 ml @ 100 mls/hr Q8H IV ; Start 07/10/17 at 16:00; Stop 07/12/17 at 00:59 Rifaximin (Xifaxan) 550 mg BID PO ; Start 07/10/17 at 21:00 ALIYAH KENNEDY Jul 10, 2017 13:23
--- NOTE | 2017-07-10 13:33 | CONS ---
DATE OF ADMISSION: 07/09/2017 DATE OF CONSULTATION: 07/10/2017 TYPE OF CONSULTATION: Infectious Disease. REASON FOR CONSULTATION: Antibiotic management. HISTORY OF PRESENT ILLNESS: Asuncion Ivy is a 47-year-old female with numerous problems includin g decompensated end-stage alcoholic liver disease who comes in with multiple problems who is being s een for antibiotic management. Her past problems include: 1. Decompensated end-stage alcoholic liver disease with cirrhosis and ascites. 2. Esophageal varices. 3. Questionable autoimmune hepatitis. The patient presented to the emergency room with rectal blee ding, generalized weakness and jaundice. She was admitted at [facility] 2 weeks ago for re ctal bleeding and EGD showed esophageal varices and she is status post banding. For the past 2 days , she has been having bloody diarrhea and has been feeling weak. In the emergency room, she was hyp otensive with blood pressure of 75/47 and heart rate 105. She has multiple abnormalities in her lab oratory, her white count is 38.9, hemoglobin and hematocrit 9.9 and 27.8, platelet count of 143,000, BUN and creatinine 38/1.7, glucose of 95. A PICC line was inserted in the left upper extremity and on chest x-ray, right hemidiaphragm is mild ly elevated. CT scan of the abdomen and pelvis shows massive abdominal and pelvic ascites with smiley re diffuse omental and mesenteric edema, thickening and edema of the wall of the stomach, of t he duodenum portion of the large bowel. Further evaluation is warranted. A large mass lesion with multilobulated thickening and enlargement of the uterus, likely due to leiomyomatous uterus, t hird spacing and edema of the subcutaneous tissues, patchy infiltration within the visualized lungs bilaterally. Atelectasis is most likely. Superimposed pneumonia is not entirely excluded. Cardiom egaly with small circumferential pericardial effusion. Renal ultrasound, echogenic renal parenchyma suggesting medical renal disease. PAST MEDICAL HISTORY: Operations as outlined. FAMILY HISTORY: Noncontributory. SOCIAL HISTORY: She is a former smoker. She is a heavy drinker, but we do not know about her drug use. ALLERGIES: NONE TO PENICILLIN, SULFA OR FOODS. MEDICATIONS: Per chart. REVIEW OF SYSTEMS: As per HPI. PHYSICAL EXAMINATION: GENERAL: The patient is a chronically ill-appearing female who is weak, jaundiced in mild to modera te distress. VITAL SIGNS: Blood pressure of 87/65, requiring norepinephrine or Levophed to maintain her blood pr essure. SKIN: Without generalized rash. She is jaundiced. HEENT: Eyes are icteric. NECK: Supple. LYMPH NODES: None palpable. CHEST: Decreased breath sounds to the bases. HEART: Tachycardic, regular rhythm. ABDOMEN: Soft, tender, distended with ascites, without organosplenomegaly or masses. EXTREMITIES: Without cyanosis, clubbing. She has 1+ edema. Full range of motion. RECTAL AND GENITAL: Examination is deferred. NEUROLOGIC: No focal neurological abnormalities. IMPRESSION AND PLAN: The patient comes in with what appears to be septic shock. She is on vancomyc in and Zosyn. She has received some methylprednisolone and has had cultures done. Blood cultures a re done. I will dictate my findings to the hospitalist. Dictated By: ANGEL RUSS MD, JD/LEONOR Conf#: [id number] DID#: [id number]
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
[2017-07-10] MEDS ORDERED: FENTAnyl 50 MCG/ML VIAL IV PRN (17:00)
[2017-07-10] MEDS: ALBUMIN HUMAN 25% 100 ML IV SCH (17:57)
[2017-07-10 18:24] LABS: HEMATOCRIT 19.4 % (37.0-47.0)
[2017-07-10] MEDS ORDERED: FENTAnyl 50 MCG/ML VIAL ONE ×3 (18:26)
[2017-07-10 18:38] LABS: HEMOGLOBIN 6.8 g/dl (12.0-16.0)
[2017-07-10 19:15] LABS: HEMATOCRIT 24.3 % (37.0-47.0); HEMOGLOBIN 8.8 g/dl (12.0-16.0)
--- NOTE | 2017-07-10 19:42 | HPN ---
Date/Time of Note Date/Time of Note DATE: 07/10/17 TIME: 19:42 Interval H&P Admission Note Pt. seen H&P reviewed: No system changes DEMARIO LINDER MD Jul 10, 2017 19:42
--- NOTE | 2017-07-10 19:48 | OPPN ---
Date/Time of Note Date/Time of Note DATE: 07/10/17 TIME: 19:43 Proc Note GI Procedure Date 07/10/17 Indication: other (GI bleeding) Pre-procedure Diagnosis GI bleeding Post-procedure Diagnosis Impression: Extensive ulceration distal esophagus post EVL. Stigmata recent bleeding. No significant esophageal varices. Portal hypertensive gastropathy. No evidence of active or recent bleeding Plan: Continue Protonix and octreotide drips Add liquid Carafate Close monitor H&H transfuse as necessary Rec coagulopathy as much as possible . Procedure Performed: Endoscopy Surgeon DEMARIO LINDER MD See signature line Material Dispatcher none Anesthesia Type: MAC Anesthesiologist: GABRIELLE ALVARENGA MD Tourniquet Time none EBL none Transfusion required none Biopsy 1: None Grafts/Implants none Tubes/Drains none Complication(s) none Disposition: other (ICU) Procedure Description Preoperative Diagnosis: After informed consent, with the patient/relatives understanding the procedure, its indications, potential risks and complications, including but not limited to : allergic reaction, bleeding, perforation or infection, and after all pertinent questions were answered to the patients satisfaction, the patient/ relatives signed witnessed informed consent. Following this, premedication was administered slowly IV push under careful cardiovascular and respiratory monitoring with pulse oximetry, automatic blood pressure, and lithographic camera operator. Once the sedative effect was achieved the patient was place in the left lateral decubitus, the panendoscope was introduced and advanced under visual control. Careful examination of the upper gastrointestinal tract, both on insertion as well as withdrawal of the instrument disclosing the following findings: ESOPHAGUS: the mucosa of the entire esophagus was carefully examined and showed the following findings: There is extensive ulceration distal esophagus likely related to recent banding. There is stigmata of recent bleeding but no active bleeding and no visible vessel or other treatable condition. Otherwise the mucosa appears within normal limits. There there are no significant esophageal varices present time. No Hiatal Hernia identified. STOMACH: Upon entrance to the stomach air was insufflated, the gastric mckeon distended normally. The mucosa of the fundus, body and antrum of the stomach was carefully examined both head-on and on retroflexion, and showed the following findings: There is erythema and edema of the mucosa of the stomach. Consistent with portal hypertensive gastropathy. No active bleeding or stigmata recent bleeding is present. Otherwise the mucosa appears within normal limits with no abnormalities. There is no evidence of gastritis, ulcers or neoplasm. PYLORUS: The pylorus was carefully examined and showed the following findings: the pylorus appears patent and within normal limits, with no evidence of gastric outlet obstruction. DUODENUM: The duodenal mucosa was carefully examined in the duodenal bulb as well as the second portion of the duodenum and showed the following findings: the mucosa appears unremarkable with no evidence of duodenitis, ulcer or neoplasm. Copies To: CC: DEMARIO LINDER MD, MORDO MD Jul 10, 2017 19:48
[2017-07-10] MEDS: VANCOMYCIN 1 GM in NS 250 ML IVPB SCH (21:19)
[2017-07-10] MEDS: RIFAXIMIN 550 MG TAB PO SCH (21:21)
[2017-07-10] MEDS: SUCRALFATE (100 MG/ML) 10ML CUP PO SCH (21:21)
[2017-07-10] MEDS ORDERED: PROPOFOL 20 ML ONE (22:23)
[2017-07-11] VITALS (75 sets, daily range): BP systolic 71–168; BP diastolic 42–152; PULSE 65–102; RESP 16–33
[2017-07-11] MEDS: ALBUMIN HUMAN 25% 100 ML IV SCH ×3 (00:51→18:01)
[2017-07-11] MEDS: LACTULOSE 30ML CUP PO SCH ×4 (00:51→18:00)
[2017-07-11 01:09] LABS: HEMOGLOBIN 8.3 g/dl (12.0-16.0)
[2017-07-11] MEDS ORDERED: LIDOCAINE 1% (MPF) 5 ML VIAL SC ONE (01:30)
[2017-07-11] MEDS: D5W-0.45 NACL + KCL 20 MEQ 1,000 ML IV SCH ×3 (01:42→22:06)
[2017-07-11] MEDS: PANTOPRAZOLE IV 80 MG in SOD CHLORIDE 0.9% 100 ML IV SCH ×3 (02:30→15:07)
[2017-07-11 05:08] LABS: ABNORMAL IP MESSAGE 1; HEMATOCRIT 23.9 % (37.0-47.0); HEMOGLOBIN 8.7 g/dl (12.0-16.0); MEAN CORPUSCULAR HEMOGLOBIN 33.1 pg (29.0-33.0); MEAN CORPUSCULAR HGB CONC 36.4 g/dl (32.0-37.0); MEAN CORPUSCULAR VOLUME 90.9 fl (82.0-101.0); MEAN PLATELET VOLUME 10.3 fl (7.4-10.4); PLATELET COUNT 95 10^3/UL (140-415); RED BLOOD COUNT 2.63 10^6/ul (4.20-5.40); RED CELL DISTRIBUTION WIDTH 20.4 % (11.5-14.5); WHITE BLOOD COUNT 33.8 10^3/ul (4.8-10.8)
[2017-07-11 05:16] LABS: POSITIVE DIFF @See below
[2017-07-11 05:20] LABS: INR 2.66; PROTIME 28.7 Sec (12.2-14.2); PT RATIO 2.2
[2017-07-11 05:30] LABS: CREATININE 1.68 mg/dl (0.44-1.00); POTASSIUM 3.5 mmol/L (3.5-5.1)
[2017-07-11 05:51] LABS: LACTIC ACID 2.4 mmol/L (0.5-2.0)
[2017-07-11] MEDS: PIPER-TAZO 3.375 GM IV (PMX) 50 ML IVPB SCH ×3 (06:02→22:30)
[2017-07-11 07:55] LABS: ANISOCYTOSIS 2+ (0-0); BURR CELLS 3+ (0-0); MICROCYTOSIS 1+ (0-0); MONOCYTES % (M) 3 % (0-11); PLATELET ESTIMATE DECREASED; POIKILOCYTOSIS 3+ (0-0); POLYCHROMASIA 2+ (0-0)
--- NOTE | 2017-07-11 08:26 | PN ---
DATE: 07/11/2017 SUBJECTIVE: The patient is currently confused, altered. No further episodes of hematochezia noted. OBJECTIVE: VITAL SIGNS: Blood pressure is 95/67, respiration 18, pulse 72, temperature 98.2. HEENT: Head is normocephalic. NECK: Supple. HEART: Regular rate. LUNGS: Show diminished breath sounds at the base. ABDOMEN: Soft, nontender to palpation. No rebound or guarding. Patient has noted ascites. EXTREMITIES: Negative for clubbing, cyanosis, no edema. DERMATOLOGIC: No rashes. MUSCULOSKELETAL: No joint effusions. NEUROLOGIC: No change in exam. LABORATORY DATA: Showed sodium 144, potassium 3.5, chloride 113, BUN 39, creatinine 1.68. White co unt 33.8, hemoglobin 8.7, hematocrit 23.9, platelet count is 95. Cultures were reviewed. ASSESSMENT AND PLAN: 1. Nonoliguric acute kidney injury on top of possible kidney disease with unknown baseline creatini ne. Etiology of acute kidney injury is secondary to acute tubular necrosis due to shock, ischemic h ypoperfusion. The patient has underlying hepatorenal pathophysiology, but a formal diagnosis of hep atorenal syndrome cannot be made given patient's excluding criteria of shock. Patient's renal funct ion has stabilized in the last 24 hours and patient is currently off pressors. At this point, margaux morgan current treatment plan, supportive care, continue IV albumin. Continue to renally dose all meds , avoid nephrotoxins. 2. Metabolic acidosis, etiology secondary to sepsis and lactic acidosis. Continue to monitor. Mon itor bicarbonate levels. 3. Mineral bone disorder. Monitor calcium and phosphorus levels. 4. Anemia. Monitor hemoglobin and hematocrit levels. 5. Acute decompensated cirrhosis, underlying gastrointestinal bleed and ascites. Continue medical management. Continue octreotide drip. Continue Protonix. Follow up with gastroenterology. Would consider paracentesis. 6. Sepsis, septic shock secondary to pneumonia. The patient is currently on antibiotics, off press or support. Continue to monitor. 7. Acute gastrointestinal bleed secondary to varices. Continue current medical management. 8. End-stage liver disease. Continue to monitor. Follow up with primary team, follow up with [facility]. 9. Leukocytosis. Etiology may be secondary to sepsis, recent prednisone use. 10. ETOH hepatitis. Continue to monitor. Follow up with gastroenterology. Please note I spent over 35 minutes of critical care time with this patient. Dictated By: CATHY RILEY/LEONOR Conf#: [id number] DID#: [id number]
[2017-07-11] MEDS: RIFAXIMIN 550 MG TAB PO SCH ×2 (09:31→21:00)
[2017-07-11] MEDS: SUCRALFATE (100 MG/ML) 10ML CUP PO SCH ×4 (09:31→21:00)
[2017-07-11] MEDS ORDERED: SOD CHLORIDE 0.9% 250 ML IV* ONE (11:11)
[2017-07-11 11:37] LABS: ABNORMAL IP MESSAGE 1; HEMATOCRIT 25.5 % (37.0-47.0); HEMOGLOBIN 8.9 g/dl (12.0-16.0); MEAN CORPUSCULAR HEMOGLOBIN 31.9 pg (29.0-33.0); MEAN CORPUSCULAR HGB CONC 34.9 g/dl (32.0-37.0); MEAN CORPUSCULAR VOLUME 91.4 fl (82.0-101.0); MEAN PLATELET VOLUME 10.8 fl (7.4-10.4); PLATELET COUNT 85 10^3/UL (140-415); RED BLOOD COUNT 2.79 10^6/ul (4.20-5.40); RED CELL DISTRIBUTION WIDTH 20.4 % (11.5-14.5); WHITE BLOOD COUNT 34.6 10^3/ul (4.8-10.8)
[2017-07-11 11:40] LABS: POSITIVE DIFF @See below
--- NOTE | 2017-07-11 11:42 | PN ---
Date/Time of Note Date/Time of Note DATE: 07/11/17 TIME: 11:25 Assessment/Plan VTE Prophylaxis VTE Prophylaxis Intervention: SCD's Lines/Catheters IV [facility] Peripheral IV Urinary Cath still in place: No Assessment/Plan Chief Complaint/Hosp Course Summary Assessment and Plan: Assessment: GI bleed/anemia/ Likely related to esophageal varices End-stage liver disease with ascites- Alcoholic hepatitis Discriminant function 98.2- Leukocytosis R/o SBP vs r/t alcoholic hepatitis Hyperbilirubinemia likely r/t ESLD MRCP-No gross evidence of biliary dilatation is seen, however gallbladder and biliary tree are not well evaluated. Shock- r/o SBP vs hypovolemic r/t GI bleed Acute kidney injury Plan: Actively bleeding hemorrhoid-ordered 4 units of FFP Stat H/H-ordered 2 units of packed RBCs May need surgical consult Continue octreotide and PPI therapy Patient is seen in collaboration with Dr. Sharp Subjective: Course reviewed with nursing staff Patient interviewed and examined All labs, imaging and other results reviewed The patient with actively bleeding hemorrhoid PT/INR remains elevated despite 3 units of FFP yesterday 4 units of FFP, stat H&H, 2 units PRBCs standby Currently receiving normal saline bolus, SBP continues to drop patient to be started on pressors. Discussed need for surgical consult. Late entry: Pt with very poor prognosis, not a candidate for liver transplant. Discriminant function 98.2-we will plan to start IV steroids, as patient not able to tolerate po 28 days then taper over 2 weeks for the treatment of alcoholic hepatitis, as without steroids which mortality increases by 50% PHYSICAL EXAMINATION: GENERAL: Chronically ill-appearing, Jaundice, SKIN: No lesions, stigmata chronic liver disease, LYMPHATIC: No palpable lymphadenopathy. HEAD: Normocephalic, atraumatic, no tenderness. EYES: Pupils equal reactive to light and accommodation, full extraocular movements, sclera clear, non-icteric, no discharge. EARS/NOSE AND THROAT: Ears normal, nose normal, oropharynx normal, oral membranes well hydrated without lesions. NECK: Supple, no masses, thyroid normal, CHEST: Inspection within normal limits. CARDIOVASCULAR: Heart: Tachycardia RESPIRATORY: Diminished GASTROINTESTINAL AND LIVER: Abdomen: firm, non tenderness, distended, ascites, no guarding, no rebound tenderness. Rectal: External hemorrhoids actively bleeding GENITOURINARY: female genitalia within normal limits. Problems: Exam/Review of Systems Vital Signs Vitals Vital Signs Date Time Temp Pulse Resp B/P Pulse Ox O2 Delivery O2 Flow Rate FiO2 07/11/17 08:00 71 07/11/17 07:00 18 95/67 99 Room Air 07/11/17 04:00 96.8 07/10/17 20:00 2.0 Intake and Output 07/10/17 07/10/17 07/11/17 15:00 23:00 07:00 Intake Total 1053.23 ml 1502.10 ml 1555.5 ml Balance 1053.23 ml 1502.10 ml 1555.5 ml Results Result Diagram: 07/11/177 07/11/17446 Results 24 hrs Laboratory Tests Test 07/10/17 12:26 07/10/17 13:40 07/10/17 18:14 07/10/17 18:49 Hemoglobin 10.7 L 6.8 #*L 8.8 #L Hematocrit 29.3 L 19.4 #L 24.3 #L Lactic Acid Level 2.0 Alpha Fetoprotein 2.61 Test 07/11/17 00:58 07/11/17 04:47 07/11/17 05:24 Hemoglobin 8.3 L 8.7 L Hematocrit 24.0 L 23.9 L White Blood Count 33.8 H Red Blood Count 2.63 L Mean Corpuscular Volume 90.9 Mean Corpuscular Hemoglobin 33.1 H Mean Corpuscular Hemoglobin Concent 36.4 Red Cell Distribution Width 20.4 H Platelet Count 95 #L Mean Platelet Volume 10.3 Neutrophils % Segmented Neutrophils % (Manual) 86 H Band Neutrophils % (Manual) 10 H Lymphocytes % Lymphocytes % (Manual) 1 L Monocytes % Monocytes % (Manual) 3 Eosinophils % Basophils % Nucleated Red Blood Cells % 0.0 Neutrophils # Neutrophils # (Manual) 30.2 H Band Neutrophils # 3.3 H Absolute Lymphocytes (Manual) 0.3 L Lymphocytes # Monocytes # Absolute Monocytes (Manual) 1.0 H Eosinophils # Basophils # Nucleated Red Blood Cells # Platelet Estimate DECREASED Polychromasia 2+ Poikilocytosis 3+ Anisocytosis 2+ Microcytosis 1+ Macrocytosis 2+ Prothrombin Time 28.7 H Prothrombin Time Ratio 2.2 INR International Normalized Ratio 2.66 Sodium Level 144 Potassium Level 3.5 Chloride Level 113 H Carbon Dioxide Level 17 L Anion Gap 18 H Blood Urea Nitrogen 39 H Creatinine 1.68 H Glucose Level 192 Lactic Acid Level 2.4 *H Calcium Level 8.0 L Ammonia 29 Lab Scanned Report BLOOD TRANSFUSION Medications Medications Current Medications IV Flush 10 ml 10 ml PRN PRN IV IV PROTOCOL; Start 07/09/17 at 17:00 Potassium Chloride/Dextrose/ Sod Cl (D5-1/2ns + KCl 20 Meq) 1,000 ml @ 100 mls/ hr Q10H IV Last administered on 07/11/17 06:02; Admin Dose 100 MLS/HR; Start 07/09/17 at 19:42 Ondansetron HCl 4 mg 4 mg Q6H PRN IV NAUSEA AND/OR VOMITING; Start 07/09/17 at 20:00 Pantoprazole 80 mg/Sodium Chloride 100 ml @ 10 mls/hr Q10H IV Last administered on 07/11/17 02:30; Admin Dose 10 MLS/HR; Start 07/09/17 at 20:30 Octreotide Acetate 1 mg/ Sodium Chloride 100 ml @ 5 mls/hr Q20H IV Last administered on 07/10/17 10:34; Admin Dose 5 MLS/HR; Start 07/09/17 at 20:30 Piperacillin Sod/ Tazobactam Sod 50 ml @ 100 mls/hr Q8 IVPB Last administered on 07/11/17 06:02; Admin Dose 100 MLS/HR; Start 07/10/17 at 07:30 Vancomycin HCl 250 ml @ 125 mls/hr Q24H IVPB Last administered on 07/10/17 21 :19; Admin Dose 125 MLS/HR; Start 07/10/17 at 18:00 Albumin Human (Albumin Human 25%) 100 ml @ 100 mls/hr Q8H IV Last administered on 07/11/17 09:31; Admin Dose 100 MLS/HR; Start 07/10/17 at 16:00 ; Stop 07/12/17 at 00:59 Rifaximin (Xifaxan) 550 mg BID PO Last administered on 07/11/17 09:31; Admin Dose 550 MG; Start 07/10/17 at 21:00 Lactulose (Enulose) 20 gm Q6 PO Last administered on 07/11/17 06:02; Admin Dose 20 GM; Start 07/11/17 at 00:00 Fentanyl (Sublimaze) 25 mcg Q3H PRN IV PAIN; Start 07/10/17 at 17:00 Sucralfate 1 gm 1 gm QID PO Last administered on 07/11/17t 09:31; Admin Dose 1 GM; Start 07/10/17 at 21:00 Norepinephrine/ Dextrose (Levophed/D5W) 500 ml @ 1.87 mls/hr TITRATE IV ; Start 07/11/17 at 01:30 MARY STEEL Jul 11, 2017 11:42
[2017-07-11] MEDS ORDERED: PHYTONADIONE 10 MG/ML INJ SC ONE (12:30)
--- NOTE | 2017-07-11 13:18 | RADRPT ---
PROCEDURE: Ultrasound guidance for placement of needle in right upper extremity vein. CLINICAL INDICATION: Venous access. TECHNIQUE: Limited sonography of the right upper extremity was performed. Ultrasound images were recorded and stored in the patient's medical record. COMPARISON: None. FINDINGS: The ultrasound images demonstrate a patent right upper extremity vein. The PICC line was inserted b y the PICC line nurse. IMPRESSION: 1. Ultrasound guidance for a needle placement in a right upper extremity vein. 2. The visualized right upper extremity vein is patent. RPTAT: QQ .Bharath Pollard MD, MD Date Time Electronically viewed and signed by .Bharath Pollard MD, MD on 07/11/2017 13:18 .R/
--- NOTE | 2017-07-11 13:21 | RADRPT ---
PROCEDURE: XR Chest. CLINICAL INDICATION: Check PICC line position. TECHNIQUE: Single frontal view. COMPARISON: 07/09/2017. FINDINGS: There is a right arm PICC line with the tip in the lower superior vena cava. Previously noted left arm PICC line has been removed. There is elevation of the right hemidiaphragm. Mild atelectasis is p resent at the right lung base. There is air space disease in the left upper lobe laterally. The heart is mildly enlarged. There is no pleural effusion. There is no pneumothorax. IMPRESSION: 1. Right arm PICC line tip in satisfactory position. 2. Previously noted left arm PICC line removed. 3. Unchanged elevation of right hemidiaphragm and right basilar atelectasis. 4. New left upper lobe air space disease consistent with pneumonia. RPTAT: QQ .Bharath Pollard MD, Date Time Electronically viewed and signed by .Bharath Pollard MD, on 07/11/2017 13:21 .R/
--- NOTE | 2017-07-11 13:34 | CONS ---
Date/Time of Note Date/Time of Note DATE: 07/11/17 TIME: 13:32 Assessment/Plan Assessment/Plan Additional Assessment/Plan Hemorrhoidal bleeding likely secondary to portal hypertension Hemorrhoid suture ligated with a 2-0 chromic. Bleeding controlled. Reconsult as needed Consultation Date/Type/Reason Admit Date/Time Jul 09, 2017 at 19:46 Date of Consultation: Jul 11, 2017 Hx of Present Illness The patient is a 47-year-old female with end-stage renal disease who was admitted a few days ago septic shock. Beginning last night she had a drop in hematocrit with her GI bleed. Patient was evaluated by GI and was thought to be a hemorrhoidal bleed. I was called for urgent consultation. Constitutional: disoriented Respiratory: no complaints Cardiovascular: no complaints Gastrointestinal: blood, decreased appetite Musculoskeletal: other (Weakness) Psychological: anxiety Past Medical History Medical History: other Social History Alcohol Use: heavy Smoking Status: Former smoker Exam/Review of Systems Vital Signs Vitals Vital Signs Date Time Temp Pulse Resp B/P Pulse Ox O2 Delivery O2 Flow Rate FiO2 07/11/17 08:00 71 07/11/17 07:00 18 95/67 99 Room Air 07/11/17 04:00 96.8 07/10/17 20:00 2.0 Intake and Output 07/10/17 07/10/17 07/11/17 14:59 22:59 06:59 Intake Total 1192.60 ml 1410.85 ml 1675.5 ml Balance 1192.60 ml 1410.85 ml 1675.5 ml Exam Constitutional: other (Jaundiced) Head: normocephalic Eyes: other (icteric) ENMT: nl external ears & nose Neck: supple Respiratory: clear to auscultation Cardiovascular: regular rate and rhythm Gastrointestinal: soft Musculoskeletal: nl extremities to inspection Extremities: normal pulses Additional Comments External hemorrhoid with active ulceration -area of concern suture ligated with a 2-0 chromic. Hemostasis achieved. Results Result Diagram: 07/11/17 1124 07/11/17 0447 Results 24 hrs Laboratory Tests Test 07/10/17 13:40 07/10/17 18:14 07/10/17 18:49 07/11/17 00:58 Lactic Acid Level 2.0 Alpha Fetoprotein 2.61 Hemoglobin 6.8 #*L 8.8 #L 8.3 L Hematocrit 19.4 #L 24.3 #L 24.0 L Test 07/11/17 04:47 07/11/17 05:24 07/11/17 11:24 White Blood Count 33.8 H 34.6 H Red Blood Count 2.63 L 2.79 L Hemoglobin 8.7 L 8.9 L Hematocrit 23.9 L 25.5 L Mean Corpuscular Volume 90.9 91.4 Mean Corpuscular Hemoglobin 33.1 H 31.9 Mean Corpuscular Hemoglobin Concent 36.4 34.9 Red Cell Distribution Width 20.4 H 20.4 H Platelet Count 95 #L 85 L Mean Platelet Volume 10.3 10.8 H Neutrophils % Segmented Neutrophils % (Manual) 86 H Band Neutrophils % (Manual) 10 H Lymphocytes % Lymphocytes % (Manual) 1 L Monocytes % Monocytes % (Manual) 3 Eosinophils % Basophils % Nucleated Red Blood Cells % 0.0 0.0 Neutrophils # Neutrophils # (Manual) 30.2 H Band Neutrophils # 3.3 H Absolute Lymphocytes (Manual) 0.3 L Lymphocytes # Monocytes # Absolute Monocytes (Manual) 1.0 H Eosinophils # Basophils # Nucleated Red Blood Cells # Platelet Estimate DECREASED Polychromasia 2+ Poikilocytosis 3+ Anisocytosis 2+ Microcytosis 1+ Macrocytosis 2+ Prothrombin Time 28.7 H Prothrombin Time Ratio 2.2 INR International Normalized Ratio 2.66 Sodium Level 144 Potassium Level 3.5 Chloride Level 113 H Carbon Dioxide Level 17 L Anion Gap 18 H Blood Urea Nitrogen 39 H Creatinine 1.68 H Glucose Level 192 Lactic Acid Level 2.4 *H Calcium Level 8.0 L Ammonia 29 Lab Scanned Report BLOOD TRANSFUSION Medications Medications Current Medications IV Flush 10 ml 10 ml PRN PRN IV IV PROTOCOL; Start 07/09/17 at 17:00 Potassium Chloride/Dextrose/ Sod Cl (D5-1/2ns + KCl 20 Meq) 1,000 ml @ 100 mls/ hr Q10H IV Last administered on 07/11/17 06:02; Admin Dose 100 MLS/HR; Start 07/09/17 at 19:42 Ondansetron HCl 4 mg 4 mg Q6H PRN IV NAUSEA AND/OR VOMITING; Start 07/09/17 at 20:00 Pantoprazole 80 mg/Sodium Chloride 100 ml @ 10 mls/hr Q10H IV Last administered on 07/11/17 02:30; Admin Dose 10 MLS/HR; Start 07/09/17 at 20:30 Octreotide Acetate 1 mg/ Sodium Chloride 100 ml @ 5 mls/hr Q20H IV Last administered on 07/10/17 10:34; Admin Dose 5 MLS/HR; Start 07/09/17 at 20:30 Piperacillin Sod/ Tazobactam Sod 50 ml @ 100 mls/hr Q8 IVPB Last administered on 07/11/17 06:02; Admin Dose 100 MLS/HR; Start 07/10/17 at 07:30 Vancomycin HCl 250 ml @ 125 mls/hr Q24H IVPB Last administered on 07/10/17 21 :19; Admin Dose 125 MLS/HR; Start 07/10/17 at 18:00 Albumin Human (Albumin Human 25%) 100 ml @ 100 mls/hr Q8H IV Last administered on 07/11/17 09:31; Admin Dose 100 MLS/HR; Start 07/10/17 at 16:00 ; Stop 07/12/17 at 00:59 Rifaximin (Xifaxan) 550 mg BID PO Last administered on 07/11/17 09:31; Admin Dose 550 MG; Start 07/10/17 at 21:00 Lactulose (Enulose) 20 gm Q6 PO Last administered on 07/11/17 06:02; Admin Dose 20 GM; Start 07/11/17 at 00:00 Fentanyl (Sublimaze) 25 mcg Q3H PRN IV PAIN; Start 07/10/17 at 17:00 Sucralfate 1 gm 1 gm QID PO Last administered on 07/11/17 09:31; Admin Dose 1 GM; Start 07/10/17 at 21:00 Norepinephrine/ Dextrose (Levophed/D5W) 500 ml @ 1.87 mls/hr TITRATE IV Last administered on 07/11/17 12:54; Admin Dose 7.5 MLS/HR; Start 07/11/17 at 01:30 ANDREW BLACK MD Jul 11, 2017 13:34
[2017-07-11 13:43] LABS: ANISOCYTOSIS 2+ (0-0); BURR CELLS 3+ (0-0); ERYTHROBLAST% (NRBC) (M) 1 % (0-0); MONOCYTES % (M) 1 % (0-11); PLATELET ESTIMATE DECREASED; POIKILOCYTOSIS 3+ (0-0); POLYCHROMASIA 3+ (0-0); SPHEROCYTES 1+ (0-0)
--- NOTE | 2017-07-11 13:43 | PN ---
DATE: 07/11/2017 SUBJECTIVE: The patient is actively bleeding from her rectum. She is awake, in no distress. VITAL SIGNS: Temperature 96.8, pulse 70, respirations 18, blood pressure 95/67, saturation 99% on r oom air. WBC 34.6, hemoglobin and hematocrit this morning increased 0.9 and 25.5, platelets 85. Sodium 144, BUN 39, creatinine 1.68. Lactic acid 2.4. MICROBIOLOGY: Blood cultures since admission negative, urine culture not sent. ANTIMICROBIALS: The patient is on: 1. Zosyn. 2. Vancomycin. DIAGNOSTICS: MRI of the abdomen revealed extensive artifact, liver surface is nodular concerning f or cirrhosis, mild hepatosplenomegaly, gallbladder and biliary tree not well visualized. No gross e vidence of biliary dilatation, large amount of ascites. Renal ultrasound showed ascites, medical re nal disease. CT of the abdomen on admission revealed massive abdominal pelvic ascites with severe d iffuse omental and mesenteric edema, thickening and edema of the wall of the stomach, C-loop of the duodenum and portions of large bowel, large mass lesion with multiloculated nodular thickening and e nlargement of the uterus, likely due to enlarged leiomyomatous uterus. Ovaries not well visualized, patchy infiltration within the visualized lungs bilaterally, superimposed pneumonia is not entirely excluded. Cardiomegaly with small circumferential pericardial effusion. INDWELLINGS: The patient has a Bang and PICC line. PHYSICAL EXAMINATION: GENERAL: This is a chronically ill-appearing, fragile, middle-aged woman who is awake, in no distre ss. The patient is very jaundiced. HEENT: Head atraumatic, normocephalic. Sclerae icteric. Buccal mucosa dry. NECK: Supple. CHEST: Rise symmetrical. Breath sounds with bilateral crackles. HEART: S1, S2. ABDOMEN: Distended. Bowel tones hypoactive. ASSESSMENT: 1. Severe sepsis. 2. Shock, likely hypovolemic, possibly septic. 3. End-stage alcoholic liver cirrhosis. 4. Esophageal varices. 5. Acute kidney injury, possibly hepatorenal syndrome. 6. Questionable bilateral pneumonia, rule out aspiration type, given the recent EGD procedure. 7. Ascites, possible SBP. PLAN: The patient remains hemodynamically unstable. She is now actively bleeding. Gastroenterolog y on case. She is covered with broad spectrum antibiotics. She is also on IV steroids. We will co ntinue observing her on current regimen. We will order urine culture. Follow on chest x-ray. Over all, prognosis guarded. Dictated By: OFELIA WEBER MELT ROOM OPERATOR for ANGEL COTTRELL/LEONOR Conf#: [id number] DID#: [id number]
--- NOTE | 2017-07-11 14:01 | PN ---
Date/Time of Note Date/Time of Note DATE: 07/11/17 TIME: 13:58 Assessment/Plan VTE Prophylaxis VTE Prophylaxis Intervention: SCD's Lines/Catheters IV [facility]ter [facility] (from [facility] Peripheral IV Urinary Cath still in place: No Assessment/Plan Chief Complaint/Hosp Course Patient is a 47-year-old female with a past medical history of alcoholic end- stage liver disease with ascites and esophageal varices who presents in shock and GI bleed Assessment and plan Septic shock, questionable GI source GI bleed, questionable esophageal varices Hemorrhoidal bleed Esophageal varices End-stage liver disease Elevated lactic acid Anion gap metabolic acidosis Acute kidney injury versus chronic kidney disease Elevated bilirubin Elevated AST Jaundice Alcoholism -In ICU, on norepinephrine, on octreotide and PPI drip. GI and nephrology has been consulted. ID has also been consulted, appreciate recommendations -Broad-spectrum antibiotics, blood cultures pending, repeat lactic pending -EGD done 07/10 showed stigmata of recent bleeding -had hemorrhoidal bleeding, stopped with pressure and FFP, general surgery, Dr. Christine sutured, bleeding stabilized -Continue albumin for 6 doses total -paracentesis when stable and okay with GI. -Supportive care, titrate off norepinephrine as able -We will defer to GI for paracentesis, questionable due to septic shock -Supportive care, still monitored closely in the ICU Problems: Subjective 24 Hr Interval Summary Free Text/Dictation patient had GI bleed overnight. Continued to bleed from rectum from hemorrhoid until pressure was applied. Exam/Review of Systems Vital Signs Vitals Vital Signs Date Time Temp Pulse Resp B/P Pulse Ox O2 Delivery O2 Flow Rate FiO2 07/11/17 12:00 71 07/11/17 07:00 18 95/67 99 Room Air 07/11/17 04:00 96.8 07/10/17 20:00 2.0 Intake and Output 07/10/17 07/10/17 07/11/17 15:00 23:00 07:00 Intake Total 1053.23 ml 1502.10 ml 1555.5 ml Balance 1053.23 ml 1502.10 ml 1555.5 ml Exam Physical exam General: Patient is laying in bed and answers questions appropriately, jaundiced Mentation: Patient is alert and oriented 4, Head: Normocephalic atraumatic Eyes: EOMI, pupils reactive to light, scleral icterus Neck: Supple, nontender, midline Respiratory: Clear to auscultation bilaterally Cardiovascular: regular rate, no obvious murmurs Gastrointestinal: mildly tender to palpation, bowel sounds heard. distended abdomen. Neurological: Moves all extremities spontaneously Skin: No new skin lesions, LE edema Results Result Diagram: 07/11/17 1124 07/11/17 0447 Results 24 hrs Laboratory Tests Test 07/10/17 18:14 07/10/17 18:49 07/11/17 00:58 07/11/17 04:47 Hemoglobin 6.8 #*L 8.8 #L 8.3 L 8.7 L Hematocrit 19.4 #L 24.3 #L 24.0 L 23.9 L White Blood Count 33.8 H Red Blood Count 2.63 L Mean Corpuscular Volume 90.9 Mean Corpuscular Hemoglobin 33.1 H Mean Corpuscular Hemoglobin Concent 36.4 Red Cell Distribution Width 20.4 H Platelet Count 95 #L Mean Platelet Volume 10.3 Neutrophils % Segmented Neutrophils % (Manual) 86 H Band Neutrophils % (Manual) 10 H Lymphocytes % Lymphocytes % (Manual) 1 L Monocytes % Monocytes % (Manual) 3 Eosinophils % Basophils % Nucleated Red Blood Cells % 0.0 Neutrophils # Neutrophils # (Manual) 30.2 H Band Neutrophils # 3.3 H Absolute Lymphocytes (Manual) 0.3 L Lymphocytes # Monocytes # Absolute Monocytes (Manual) 1.0 H Eosinophils # Basophils # Nucleated Red Blood Cells # Platelet Estimate DECREASED Polychromasia 2+ Poikilocytosis 3+ Anisocytosis 2+ Microcytosis 1+ Macrocytosis 2+ Prothrombin Time 28.7 H Prothrombin Time Ratio 2.2 INR International Normalized Ratio 2.66 Sodium Level 144 Potassium Level 3.5 Chloride Level 113 H Carbon Dioxide Level 17 L Anion Gap 18 H Blood Urea Nitrogen 39 H Creatinine 1.68 H Glucose Level 192 Lactic Acid Level 2.4 *H Calcium Level 8.0 L Ammonia 29 Test 07/11/17 05:24 07/11/17 11:24 Lab Scanned Report BLOOD TRANSFUSION White Blood Count 34.6 H Red Blood Count 2.79 L Hemoglobin 8.9 L Hematocrit 25.5 L Mean Corpuscular Volume 91.4 Mean Corpuscular Hemoglobin 31.9 Mean Corpuscular Hemoglobin Concent 34.9 Red Cell Distribution Width 20.4 H Platelet Count 85 L Mean Platelet Volume 10.8 H Neutrophils % Segmented Neutrophils % (Manual) 92 H Band Neutrophils % (Manual) 6 H Lymphocytes % Lymphocytes % (Manual) 1 L Monocytes % Monocytes % (Manual) 1 Eosinophils % Basophils % Nucleated Red Blood Cells % 1 H Neutrophils # Neutrophils # (Manual) 32.5 H Band Neutrophils # 2.0 H Absolute Lymphocytes (Manual) 0.3 L Lymphocytes # Monocytes # Absolute Monocytes (Manual) 0.3 Eosinophils # Basophils # Nucleated Red Blood Cells # Platelet Estimate DECREASED Polychromasia 3+ Poikilocytosis 3+ Anisocytosis 2+ Macrocytosis 1+ Spherocytes 1+ Medications Medications Current Medications IV Flush 10 ml 10 ml PRN PRN IV IV PROTOCOL; Start 07/09/17 at 17:00 Potassium Chloride/Dextrose/ Sod Cl (D5-1/2ns + KCl 20 Meq) 1,000 ml @ 100 mls/ hr Q10H IV Last administered on 07/11/17 06:02; Admin Dose 100 MLS/HR; Start 07/09/17 at 19:42 Ondansetron HCl 4 mg 4 mg Q6H PRN IV NAUSEA AND/OR VOMITING; Start 07/09/17 at 20:00 Pantoprazole 80 mg/Sodium Chloride 100 ml @ 10 mls/hr Q10H IV Last administered on 07/11/17 02:30; Admin Dose 10 MLS/HR; Start 07/09/17 at 20:30 Octreotide Acetate 1 mg/ Sodium Chloride 100 ml @ 5 mls/hr Q20H IV Last administered on 07/10/17 10:34; Admin Dose 5 MLS/HR; Start 07/09/17 at 20:30 Piperacillin Sod/ Tazobactam Sod 50 ml @ 100 mls/hr Q8 IVPB Last administered on 07/11/17 06:02; Admin Dose 100 MLS/HR; Start 07/10/17 at 07:30 Vancomycin HCl 250 ml @ 125 mls/hr Q24H IVPB Last administered on 07/10/17 21 :19; Admin Dose 125 MLS/HR; Start 07/10/17 at 18:00 Albumin Human (Albumin Human 25%) 100 ml @ 100 mls/hr Q8H IV Last administered on 07/11/17 09:31; Admin Dose 100 MLS/HR; Start 07/10/17 at 16:00 ; Stop 07/12/17 at 00:59 Rifaximin (Xifaxan) 550 mg BID PO Last administered on 07/11/17 09:31; Admin Dose 550 MG; Start 07/10/17 at 21:00 Lactulose (Enulose) 20 gm Q6 PO Last administered on 07/11/17 06:02; Admin Dose 20 GM; Start 07/11/17 at 00:00 Fentanyl (Sublimaze) 25 mcg Q3H PRN IV PAIN; Start 07/10/17 at 17:00 Sucralfate 1 gm 1 gm QID PO Last administered on 07/11/17 09:31; Admin Dose 1 GM; Start 07/10/17 at 21:00 Norepinephrine/ Dextrose (Levophed/D5W) 500 ml @ 1.87 mls/hr TITRATE IV Last administered on 07/11/17 12:54; Admin Dose 7.5 MLS/HR; Start 07/11/17 at 01:30 IV Flush (NS 10 ml) 10 ml PRN PRN IV IV PROTOCOL; Start 07/11/17 at 14:00; Status UNALIYAH MART Jul 11, 2017 14:01
[2017-07-11] MEDS: OCTREOTIDE 1 MG in SOD CHLORIDE 0.9% 95 ML IV SCH (15:07)
[2017-07-11] MEDS ORDERED: LORAZEPAM 0.5 MG TAB PO ONE (16:30)
[2017-07-11] MEDS ORDERED: SOD CHLORIDE 0.9% 100 ML ONE (16:34)
[2017-07-11 18:57] LABS: HEMATOCRIT 21.6 % (37.0-47.0); HEMOGLOBIN 7.3 g/dl (12.0-16.0)
[2017-07-11] MEDS: VANCOMYCIN 1 GM in NS 250 ML IVPB SCH (19:30)
[2017-07-11] MEDS ORDERED: HALOPERIDOL 5 MG INJ IM ONE (20:30)
[2017-07-11 21:38] LABS: AADO2 Arterial 395.4 mmHg (7.0-24.0); Allen Test ACCEPTAB; Arterial Base Excess -9.8 mmol/L (-3.0-3); Arterial COHb 0.7 % (0.0-3.0); Arterial Fraction of Oxyhgb 98.4 % (93.0-99.0); Arterial HCO3 15.5 mmol/L (22.0-26.0); Arterial MetHb 0.5 % (0.0-1.5); Arterial Total Hemglobin 7.2 g/dl (12.0-18.0); Blood Gas IEPAP 15/5; MODE MASK - BIPAP
[2017-07-12] VITALS (37 sets, daily range): BP systolic 85–126; BP diastolic 61–96; PULSE 68–122; RESP 15–29
[2017-07-12] MEDS: ALBUMIN HUMAN 25% 100 ML IV SCH
[2017-07-12 01:35] LABS: AADO2 Arterial 148.1 mmHg (7.0-24.0); Allen Test ACCEPTAB; Arterial Base Excess -9.5 mmol/L (-3.0-3); Arterial COHb 1.1 % (0.0-3.0); Arterial HCO3 16.4 mmol/L (22.0-26.0); Arterial MetHb 0.2 % (0.0-1.5); Arterial Total Hemglobin 7.8 g/dl (12.0-18.0); MODE NASAL CANNULA
[2017-07-12] MEDS ORDERED: ALBUTEROL/IPRATROPIUM (NEB) 3 ML AMP HHN PRN (02:30)
[2017-07-12] MEDS: PIPER-TAZO 3.375 GM IV (PMX) 50 ML IVPB SCH (05:45)
[2017-07-12] MEDS ORDERED: LORAZEPAM (2 MG/ML) INJ IV ONE (06:00)
[2017-07-12] MEDS: LACTULOSE 30ML CUP PO SCH ×2 (06:00)
[2017-07-12] MEDS: PANTOPRAZOLE IV 80 MG in SOD CHLORIDE 0.9% 100 ML IV SCH (06:00)
[2017-07-12] MEDS ORDERED: LORAZEPAM 2 MG INJ IV ONE (06:06)
[2017-07-12 06:16] LABS: ABNORMAL IP MESSAGE 1; HEMATOCRIT 25.3 % (37.0-47.0); HEMOGLOBIN 8.6 g/dl (12.0-16.0); MEAN CORPUSCULAR VOLUME 91.3 fl (82.0-101.0); PLATELET COUNT 55 10^3/UL (140-415); RED BLOOD COUNT 2.77 10^6/ul (4.20-5.40); RED CELL DISTRIBUTION WIDTH 17.9 % (11.5-14.5); WHITE BLOOD COUNT 25.5 10^3/ul (4.8-10.8)
[2017-07-12 06:22] LABS: POSITIVE DIFF @See below
[2017-07-12 06:33] LABS: CALCIUM 8.1 mg/dl (8.4-10.2); CREATININE 1.57 mg/dl (0.44-1.00); MAGNESIUM 1.6 mg/dl (1.7-2.5); PHOSPHORUS 4.7 mg/dl (2.5-4.9); POTASSIUM 3.3 mmol/L (3.5-5.1)
[2017-07-12 07:36] LABS: ANISOCYTOSIS 2+ (0-0); BURR CELLS 3+ (0-0); EOSINOPHILS % (M) 1 % (0-7); MICROCYTOSIS 1+ (0-0); MONOCYTES % (M) 1 % (0-11); PLATELET ESTIMATE SIG DECREASED; POIKILOCYTOSIS 3+ (0-0); POLYCHROMASIA 3+ (0-0)
--- NOTE | 2017-07-12 07:36 | RADRPT ---
PROCEDURE: XR Chest. CLINICAL INDICATION: r/o pna TECHNIQUE: Single portable view of the chest was obtained COMPARISON: 07/11/2017. FINDINGS: A right upper extremity PICC line tip overlies the distal superior vena cava. Low lung volumes noted. The cardiomediastinal silhouette is enlarged. There is mild chronic elevatio n of the right hemidiaphragm. Interval increased diffuse right sided airspace disease is present. Pe rsistent right paratracheal soft tissue density is noted. There is unchanged left upper lobe air spa ce disease compatible with pneumonia. Small right-sided pleural effusion is present . IMPRESSION: 1. Interval appearing diffuse right sided airspace disease. 2. Unchanged left upper lobe air space disease. 3. Unchanged right paratracheal soft tissue fullness. 4. Small right-sided pleural effusion. 5. Cardiomegaly. 6. Right upper extremity PICC line. RPTAT: HRSR Physician Jonh Date Time Electronically viewed and signed by Physician Jonh on 07/12/2017 07:36 RR/
[2017-07-12] MEDS: D5W-0.45 NACL + KCL 20 MEQ 1,000 ML IV SCH (07:42)
[2017-07-12] MEDS ORDERED: ALBUTEROL/IPRATROPIUM (NEB) 3 ML AMP HHN SCH (08:00)
[2017-07-12] MEDS ORDERED: MAGNESIUM SULFATE 2 GM/50 ML 50 ML IVPB ONE (08:30)
[2017-07-12] MEDS: OCTREOTIDE 1 MG in SOD CHLORIDE 0.9% 95 ML IV SCH (08:30)
[2017-07-12] MEDS ORDERED: POTASSIUM CHLORIDE 250 ML IVPB ONE (08:30)
--- NOTE | 2017-07-12 08:44 | PN ---
DATE: 07/12/2017 SUBJECTIVE: The patient remains critically ill, currently on BiPAP. The patient declined over the last 24 hours. No other acute events noted. No hemoptysis, hematemesis or hematochezia. OBJECTIVE: VITAL SIGNS: Blood pressure is 117/96, respirations 29, pulse 98, temperature 98.6. GENERAL: The patient is weak, frail, jaundiced. HEENT: Head is normocephalic. NECK: Supple. HEART: Regular rate. LUNGS: Show diminished breath sounds at base. ABDOMEN: Soft, positive fluid wave. EXTREMITIES: Negative for clubbing, cyanosis. Trace edema. DERMATOLOGIC: No rashes. MUSCULOSKELETAL: No joint effusions. NEUROLOGIC: No change in exam. MEDICATIONS: The patient's medications have been reviewed. LABORATORY DATA: White count 25.5, hemoglobin 8.6, hematocrit 25.3, platelet count 55. Sodium 140, potassium 3.3, chloride 114, BUN 33, creatinine 1.57, magnesium 1.6. Lactic acid 3.0. ASSESSMENT AND PLAN: 1. Nonoliguric acute kidney injury with unknown baseline creatinine. Etiology of acute kidney inju ry is secondary to acute tubular necrosis due to ischemic hyperperfusion and shock. The patient's r enal function has been stable over the last 48 hours and at this point, would continue current treat ment plan, supportive care, renally dose all meds. 2. Metabolic acidosis secondary to lactic acidosis and acute kidney injury. Continue to monitor. 3. Mineral bone disorder. Continue to monitor calcium and phosphorus levels. 4. Hypokalemia and hypomagnesemia. Will monitor and replete. 5. Anemia, monitor hemoglobin and hematocrit levels. 6. Acute lower gastrointestinal bleed secondary to hemorrhoids. The patient is status post surgica l ligation, continue to monitor. 7. Acute decompensated cirrhosis due to underlying varices and ascites. Continue current medical m anagement. Follow up with GI. 8. Sepsis, status post shock secondary to pneumonia. The patient is currently on antibiotics, cont inue to monitor. 9. End-stage liver disease. Continue current medical management. Consider possible hospice evalua tion. 10. Leukocytosis, etiology secondary to sepsis, recent prednisone use. Continue to monitor. 11. Possible ETOH hepatitis, continue medical management.. Please note, I spent over 30 minutes of critical care time with this patient. Dictated By: CATHY RILEY/LEONOR Conf#: [id number] DID#: [id number]
[2017-07-12] MEDS ORDERED: METHYLPREDNISOLONE 40 MG INJ IV SCH (09:00)
--- NOTE | 2017-07-12 09:22 | CONS ---
Date/Time of Note Date/Time of Note DATE: 07/12/17 TIME: 09:20 Consultation Date/Type/Reason Admit Date/Time Jul 09, 2017 at 19:46 Initial Consult Date 07/11/17 Type of Consultation: Palliative 24 HR Interval Summary Free Text/Dictation Discussion with all family members including the [employer] WORK[employer] in addition to both children patient's sister and a third daughter from out of town. Discussed all palliative care issues as noted in my last progress note. Discussed options with family members they have decided on comfort measures and discontinue this level of care including BiPAP. Patient will be started on appropriate comfort medications and support will be given the family members close follow-up for patient's symptoms. Exam/Review of Systems Vital Signs Vitals Vital Signs Date Time Temp Pulse Resp B/P Pulse Ox O2 Delivery O2 Flow Rate FiO2 07/12/17 07:47 75 95 45 07/12/17 06:00 29 117/96 BIPAP 07/12/17 04:00 96.4 07/12/17 02:26 5.0 Intake and Output 07/11/17 07/11/17 07/12/17 15:00 23:00 07:00 Intake Total 693.74 ml 1285 ml 910 ml Balance 693.74 ml 1285 ml 910 ml Results Result Diagram: 07/12/17 0530 07/12/17 0530 Results 24 hrs Laboratory Tests Test 07/11/17 11:24 07/11/17 16:27 07/11/17 18:25 07/11/17 19:30 White Blood Count 34.6 H Red Blood Count 2.79 L Hemoglobin 8.9 L 7.3 L Hematocrit 25.5 L 21.6 L Mean Corpuscular Volume 91.4 Mean Corpuscular Hemoglobin 31.9 Mean Corpuscular Hemoglobin Concent 34.9 Red Cell Distribution Width 20.4 H Platelet Count 85 L Mean Platelet Volume 10.8 H Neutrophils % Segmented Neutrophils % (Manual) 92 H Band Neutrophils % (Manual) 6 H Lymphocytes % Lymphocytes % (Manual) 1 L Monocytes % Monocytes % (Manual) 1 Eosinophils % Basophils % Nucleated Red Blood Cells % 1 H Neutrophils # Neutrophils # (Manual) 32.5 H Band Neutrophils # 2.0 H Absolute Lymphocytes (Manual) 0.3 L Lymphocytes # Monocytes # Absolute Monocytes (Manual) 0.3 Eosinophils # Basophils # Nucleated Red Blood Cells # Platelet Estimate DECREASED Polychromasia 3+ Poikilocytosis 3+ Anisocytosis 2+ Macrocytosis 1+ Spherocytes 1+ Blood Gas Specimen Source Blood arterial Arterial Blood Date Drawn 07/11/2017 5:20:00 PM Arterial Blood pH (Temp corrected) 7.278 *L Arterial Blood pCO2 (Temp correct) 35.9 Arterial Blood pO2 (Temp corrected) 66.9 L Arterial Blood HCO3 16.4 L Arterial Blood Base Excess -9.5 L Arterial Blood Oxygen Saturation 90.2 L Daquan Test ACCEPTAB Arterial Blood Gas Puncture Site Right Radial Arterial Blood Carboxyhemoglobin 1.1 Arterial Blood Methemoglobin 0.2 Blood Gas A-a O2 Differential 148.1 H Oxyhemoglobin Percent 89.0 L Total Hemoglobin 7.8 L Blood Gas Temperature 37.0 Blood Gas Modality NASAL CANNULA FiO2 36.0 Blood Gas Critical Value Read Back LOUIS GARCIA Blood Gas Notified Whom NZAKERI Blood Gas Notified Time 07/11/2017 5:35:00 PM Stool Occult Blood POSITIVE Test 07/11/17 20:54 07/12/17 05:12 07/12/17 05:30 Blood Gas Specimen Source Blood arterial Arterial Blood Date Drawn 07/11/2017 9:10:09 PM Arterial Blood pH (Temp corrected) 7.311 L Arterial Blood pCO2 (Temp correct) 31.4 L Arterial Blood pO2 (Temp corrected) 286.2 H Arterial Blood HCO3 15.5 L Arterial Blood Base Excess -9.8 L Arterial Blood Oxygen Saturation 99.6 H Daquan Test ACCEPTAB Arterial Blood Gas Puncture Site Right Radial Arterial Blood Carboxyhemoglobin 0.7 Arterial Blood Methemoglobin 0.5 Blood Gas A-a O2 Differential 395.4 H Oxyhemoglobin Percent 98.4 Total Hemoglobin 7.2 L Blood Gas Temperature 37.0 Blood Gas Respiration Rate 16.0 Blood Gas Actual Respiration Rate 32 Blood Gas Modality MASK - BIPAP FiO2 100.0 Blood Gas IPAP/EPAP Ratio 15/5 Blood Gas Notified Whom Blood Gas Notified Time 07/11/2017 9:37:51 PM Lab Scanned Report BLOOD TRANSFUSION White Blood Count 25.5 #H Red Blood Count 2.77 L Hemoglobin 8.6 L Hematocrit 25.3 L Mean Corpuscular Volume 91.3 Mean Corpuscular Hemoglobin 31.0 Mean Corpuscular Hemoglobin Concent 34.0 Red Cell Distribution Width 17.9 H Platelet Count 55 #L Mean Platelet Volume 12.0 H Neutrophils % Segmented Neutrophils % (Manual) 82 H Band Neutrophils % (Manual) 12 H Lymphocytes % Lymphocytes % (Manual) 4 L Monocytes % Monocytes % (Manual) 1 Eosinophils % Eosinophils % (Manual) 1 Basophils % Nucleated Red Blood Cells % 0.0 Neutrophils # Neutrophils # (Manual) 21.7 H Band Neutrophils # 3.0 H Absolute Lymphocytes (Manual) 1.0 Lymphocytes # Monocytes # Absolute Monocytes (Manual) 0.2 L Eosinophils # Basophils # Nucleated Red Blood Cells # Platelet Estimate SIG DECREASED Polychromasia 3+ Poikilocytosis 3+ Anisocytosis 2+ Microcytosis 1+ Macrocytosis 1+ Sodium Level 148 H Potassium Level 3.3 L Chloride Level 114 H Carbon Dioxide Level 16 L Anion Gap 21 H Blood Urea Nitrogen 33 H Creatinine 1.57 H Glucose Level 162 Lactic Acid Level 3.0 *H Calcium Level 8.1 L Phosphorus Level 4.7 Magnesium Level 1.6 L Medications Medications Current Medications IV Flush 10 ml 10 ml PRN PRN IV IV PROTOCOL; Start 07/09/17 at 17:00 Potassium Chloride/Dextrose/ Sod Cl (D5-1/2ns + KCl 20 Meq) 1,000 ml @ 100 mls/ hr Q10H IV Last administered on 07/11/17 22:06; Admin Dose 100 MLS/HR; Start 07/09/17 at 19:42 Ondansetron HCl 4 mg 4 mg Q6H PRN IV NAUSEA AND/OR VOMITING; Start 07/09/17 at 20:00 Pantoprazole 80 mg/Sodium Chloride 100 ml @ 10 mls/hr Q10H IV Last administered on 07/12/17 06:00; Admin Dose 10 MLS/HR; Start 07/09/17 at 20:30 Octreotide Acetate 1 mg/ Sodium Chloride 100 ml @ 5 mls/hr Q20H IV Last administered on 07/11/17 15:07; Admin Dose 5 MLS/HR; Start 07/09/17 at 20:30 Piperacillin Sod/ Tazobactam Sod 50 ml @ 100 mls/hr Q8 IVPB Last administered on 07/12/17 05:45; Admin Dose 100 MLS/HR; Start 07/10/17 at 07:30 Vancomycin HCl (Vancocin) 250 ml @ 125 mls/hr Q24H IVPB Last administered on 07/11/17 19:30; Admin Dose 125 MLS/HR; Start 07/10/17 at 18:00 Rifaximin (Xifaxan) 550 mg BID PO Last administered on 07/11/17 09:31; Admin Dose 550 MG; Start 07/10/17 at 21:00 Lactulose (Enulose) 20 gm Q6 PO Last administered on 07/11/17 06:02; Admin Dose 20 GM; Start 07/11/17 at 00:00 Fentanyl (Sublimaze) 25 mcg Q3H PRN IV PAIN; Start 07/10/17 at 17:00 Sucralfate 1 gm 1 gm QID PO Last administered on 07/11/17 09:31; Admin Dose 1 GM; Start 07/10/17 at 21:00 Norepinephrine/ Dextrose (Levophed/D5W) 500 ml @ 1.87 mls/hr TITRATE IV Last administered on 07/11/17 12:54; Admin Dose 7.5 MLS/HR; Start 07/11/17 at 01:30 IV Flush (NS 10 ml) 10 ml PRN PRN IV IV PROTOCOL; Start 07/11/17 at 14:00 Methylprednisolone Sodium Succinate (Solu-Medrol) 32 mg DAILY IV ; Start at 09:00 Miscellaneous Information VANCO TROUGH @ 1,700 ON ... ONCE ONCE XX ; Start at 17:00; Stop 07/12/17 at 17:01 Potassium Chloride 250 ml @ 62.5 mls/hr ONCE ONCE IVPB ; Start 07/12/17 at 08 :30; Stop 07/12/17 at 12:29 Magnesium Sulfate (Magnesium Sulfate 2 Gm/50 ml) 50 ml @ 25 mls/hr ONCE ONCE IVPB ; Start 07/12/17 at 08:30; Stop 07/12/17 at 10:29 KATYA VITAL Jul 12, 2017 09:22
--- NOTE | 2017-07-12 11:26 | PN ---
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 and esophageal varices who presents in shock and GI bleed Assessment and plan Septic shock, questionable GI source GI bleed, questionable esophageal varices Hemorrhoidal bleed Esophageal varices End-stage liver disease Elevated lactic acid Anion gap metabolic acidosis Acute kidney injury versus chronic kidney disease Elevated bilirubin Elevated AST Jaundice Alcoholism -End stage liver disease, multiple hospitalizations due to condition, patient's durable power of attorney recruiter spoke with palliative care, decided on comfort measures only -patient's POA stated patient would not want extraordinary measures, no intubation -morphine drip ordered -stat hospice consult -med/surg dg okay Problems: Subjective 24 Hr Interval Summary Free Text/Dictation patient became hypoxic overnight, placed on bipap Exam/Review of Systems Vital Signs Vitals Vital Signs Date Time Temp Pulse Resp B/P Pulse Ox O2 Delivery O2 Flow Rate FiO2 07/12/17 09:43 86 98 45 07/12/17 06:00 29 117/96 BIPAP 07/12/17 04:00 96.4 07/12/17 02:26 5.0 Intake and Output 07/11/17 07/11/17 07/12/17 15:00 23:00 07:00 Intake Total 693.74 ml 1285 ml 910 ml Balance 693.74 ml 1285 ml 910 ml Exam Physical exam General: Patient is laying in bed, lethargic, on bipap Mentation: Patient is alert but not oriented Head: Normocephalic atraumatic Eyes: EOMI, pupils reactive to light, scleral icterus Neck: Supple, nontender, midline Respiratory: coarse to auscultation bilaterally Cardiovascular: regular rate, no obvious murmurs Gastrointestinal: mildly tender to palpation, bowel sounds heard. increased size of distended abdomen. Neurological: Moves all extremities spontaneously Skin: No new skin lesions, LE edema minimal Results Result Diagram: 11/10/17 0530 11/10/17 0530 Results 24 hrs Laboratory Tests Test 07/11/17 11:24 07/11/17 16:27 07/11/17 18:25 07/11/17 19:30 White Blood Count 34.6 H Red Blood Count 2.79 L Hemoglobin 8.9 L 7.3 L Hematocrit 25.5 L 21.6 L Mean Corpuscular Volume 91.4 Mean Corpuscular Hemoglobin 31.9 Mean Corpuscular Hemoglobin Concent 34.9 Red Cell Distribution Width 20.4 H Platelet Count 85 L Mean Platelet Volume 10.8 H Neutrophils % Segmented Neutrophils % (Manual) 92 H Band Neutrophils % (Manual) 6 H Lymphocytes % Lymphocytes % (Manual) 1 L Monocytes % Monocytes % (Manual) 1 Eosinophils % Basophils % Nucleated Red Blood Cells % 1 H Neutrophils # Neutrophils # (Manual) 32.5 H Band Neutrophils # 2.0 H Absolute Lymphocytes (Manual) 0.3 L Lymphocytes # Monocytes # Absolute Monocytes (Manual) 0.3 Eosinophils # Basophils # Nucleated Red Blood Cells # Platelet Estimate DECREASED Polychromasia 3+ Poikilocytosis 3+ Anisocytosis 2+ Macrocytosis 1+ Spherocytes 1+ Blood Gas Specimen Source Blood arterial Arterial Blood Date Drawn 07/11/2017 5:20:00 PM Arterial Blood pH (Temp corrected) 7.278 *L Arterial Blood pCO2 (Temp correct) 35.9 Arterial Blood pO2 (Temp corrected) 66.9 L Arterial Blood HCO3 16.4 L Arterial Blood Base Excess -9.5 L Arterial Blood Oxygen Saturation 90.2 L Daquan Test ACCEPTAB Arterial Blood Gas Puncture Site Right Radial Arterial Blood Carboxyhemoglobin 1.1 Arterial Blood Methemoglobin 0.2 Blood Gas A-a O2 Differential 148.1 H Oxyhemoglobin Percent 89.0 L Total Hemoglobin 7.8 L Blood Gas Temperature 37.0 Blood Gas Modality NASAL CANNULA FiO2 36.0 Blood Gas Critical Value Read Back LOUIS GARCIA Blood Gas Notified Whom NZAKERI Blood Gas Notified Time 07/11/2017 5:35:00 PM Stool Occult Blood POSITIVE Test 07/11/17 20:54 07/12/17 05:12 07/12/17 05:30 Blood Gas Specimen Source Blood arterial Arterial Blood Date Drawn 07/11/2017 9:10:09 PM Arterial Blood pH (Temp corrected) 7.311 L Arterial Blood pCO2 (Temp correct) 31.4 L Arterial Blood pO2 (Temp corrected) 286.2 H Arterial Blood HCO3 15.5 L Arterial Blood Base Excess -9.8 L Arterial Blood Oxygen Saturation 99.6 H Daquan Test ACCEPTAB Arterial Blood Gas Puncture Site Right Radial Arterial Blood Carboxyhemoglobin 0.7 Arterial Blood Methemoglobin 0.5 Blood Gas A-a O2 Differential 395.4 H Oxyhemoglobin Percent 98.4 Total Hemoglobin 7.2 L Blood Gas Temperature 37.0 Blood Gas Respiration Rate 16.0 Blood Gas Actual Respiration Rate 32 Blood Gas Modality MASK - BIPAP FiO2 100.0 Blood Gas IPAP/EPAP Ratio 15/5 Blood Gas Notified Whom Blood Gas Notified Time 07/11/2017 9:37:51 PM Lab Scanned Report BLOOD TRANSFUSION White Blood Count 25.5 #H Red Blood Count 2.77 L Hemoglobin 8.6 L Hematocrit 25.3 L Mean Corpuscular Volume 91.3 Mean Corpuscular Hemoglobin 31.0 Mean Corpuscular Hemoglobin Concent 34.0 Red Cell Distribution Width 17.9 H Platelet Count 55 #L Mean Platelet Volume 12.0 H Neutrophils % Segmented Neutrophils % (Manual) 82 H Band Neutrophils % (Manual) 12 H Lymphocytes % Lymphocytes % (Manual) 4 L Monocytes % Monocytes % (Manual) 1 Eosinophils % Eosinophils % (Manual) 1 Basophils % Nucleated Red Blood Cells % 0.0 Neutrophils # Neutrophils # (Manual) 21.7 H Band Neutrophils # 3.0 H Absolute Lymphocytes (Manual) 1.0 Lymphocytes # Monocytes # Absolute Monocytes (Manual) 0.2 L Eosinophils # Basophils # Nucleated Red Blood Cells # Platelet Estimate SIG DECREASED Polychromasia 3+ Poikilocytosis 3+ Anisocytosis 2+ Microcytosis 1+ Macrocytosis 1+ Sodium Level 148 H Potassium Level 3.3 L Chloride Level 114 H Carbon Dioxide Level 16 L Anion Gap 21 H Blood Urea Nitrogen 33 H Creatinine 1.57 H Glucose Level 162 Lactic Acid Level 3.0 *H Calcium Level 8.1 L Phosphorus Level 4.7 Magnesium Level 1.6 L Medications Medications Current Medications IV Flush 10 ml 10 ml PRN PRN IV IV PROTOCOL; Start 07/09/17 at 17:00 Potassium Chloride/Dextrose/ Sod Cl (D5-1/2ns + KCl 20 Meq) 1,000 ml @ 100 mls/ hr Q10H IV Last administered on 07/11/17t 22:06; Admin Dose 100 MLS/HR; Start 07/09/17 at 19:42 Ondansetron HCl 4 mg 4 mg Q6H PRN IV NAUSEA AND/OR VOMITING; Start 07/09/17 at 20:00 Pantoprazole 80 mg/Sodium Chloride 100 ml @ 10 mls/hr Q10H IV Last administered on 07/12/17 06:00; Admin Dose 10 MLS/HR; Start 07/09/17 at 20:30 Octreotide Acetate 1 mg/ Sodium Chloride 100 ml @ 5 mls/hr Q20H IV Last administered on 07/11/17 15:07; Admin Dose 5 MLS/HR; Start 07/09/17 at 20:30 Piperacillin Sod/ Tazobactam Sod 50 ml @ 100 mls/hr Q8 IVPB Last administered on 07/12/17 05:45; Admin Dose 100 MLS/HR; Start 07/10/17 at 07:30 Vancomycin HCl (Vancocin) 250 ml @ 125 mls/hr Q24H IVPB Last administered on 07/11/17 19:30; Admin Dose 125 MLS/HR; Start 07/10/17 at 18:00 Rifaximin (Xifaxan) 550 mg BID PO Last administered on 07/11/17 09:31; Admin Dose 550 MG; Start 07/10/17 at 21:00 Lactulose (Enulose) 20 gm Q6 PO Last administered on 07/11/17 06:02; Admin Dose 20 GM; Start 07/11/17 at 00:00 Fentanyl (Sublimaze) 25 mcg Q3H PRN IV PAIN; Start 07/10/17 at 17:00 Sucralfate 1 gm 1 gm QID PO Last administered on 07/11/17 09:31; Admin Dose 1 GM; Start 07/10/17 at 21:00 Norepinephrine/ Dextrose (Levophed/D5W) 500 ml @ 1.87 mls/hr TITRATE IV Last administered on 07/11/17 12:54; Admin Dose 7.5 MLS/HR; Start 07/11/17 at 01:30 IV Flush (NS 10 ml) 10 ml PRN PRN IV IV PROTOCOL; Start 07/11/17 at 14:00 Methylprednisolone Sodium Succinate (Solu-Medrol) 32 mg DAILY IV ; Start at 09:00 Miscellaneous Information VANCO TROUGH @ 1,700 ON ... ONCE ONCE XX ; Start at 17:00; Stop 07/12/17 at 17:01 Potassium Chloride 250 ml @ 62.5 mls/hr ONCE ONCE IVPB ; Start 07/12/17 at 08 :30; Stop 07/12/17 at 12:29 Morphine Sulfate/ Sodium Chloride (morphine) 100 ml @ 0 mls/hr TITRATE IV ; Start 07/12/17 at 09:30 Lorazepam (Ativan) 1 mg Q3H PRN IV SEDATION; Start 07/12/17 at 09:30 ALIYAH KENNEDY Jul 12, 2017 11:26
[2017-07-12] MEDS: morphine (DRIP) 100 MG/100 ML 100 ML IV SCH ×2 (11:27→14:14)
[2017-07-12 14:17] LABS: MITOCHONDRIAL TB NEGATIVE (NEGATIVE)
[2017-07-12] MEDS: LORAZEPAM 2 MG INJ IV PRN ×2 (14:22→19:01)
--- NOTE | 2017-07-12 21:47 | CONS ---
Date/Time of Note Date/Time of Note DATE: 07/12/17 TIME: 21:45 Assessment/Plan Assessment/Plan Chief Complaint/Hosp Course Assessment: GI bleed/anemia/ Likely related to esophageal varices End-stage liver disease with ascites- Alcoholic hepatitis Discriminant function 98.2- Leukocytosis R/o SBP vs r/t alcoholic hepatitis Hyperbilirubinemia likely r/t ESLD MRCP-No gross evidence of biliary dilatation is seen, however gallbladder and biliary tree are not well evaluated. Shock- r/o SBP vs hypovolemic r/t GI bleed Acute kidney injury Plan: Actively bleeding hemorrhoid-ordered 4 units of FFP Stat H/H-ordered 2 units of packed RBCs May need surgical consult As patient is DNR/DNI, ok to stop octreotide and PPI therapy Problems: Consultation Date/Type/Reason Admit Date/Time Jul 09, 2017 at 19:46 Initial Consult Date 07/11/17 Type of Consultation: GI 24 HR Interval Summary Subjective hx not possible: pt non-verbal Constitutional: disoriented Exam/Review of Systems Vital Signs Vitals Vital Signs Date Time Temp Pulse Resp B/P Pulse Ox O2 Delivery O2 Flow Rate FiO2 07/12/17 21:00 Non Rebreather 15.0 07/12/17 18:11 97.4 114 16 120/61 81 07/12/17 11:41 45 Intake and Output 07/11/17 07/11/17 07/12/17 15:00 23:00 07:00 Intake Total 693.74 ml 1285 ml 910 ml Balance 693.74 ml 1285 ml 910 ml Exam Constitutional: non-verbal Psych: confusion Head: atraumatic, normocephalic Eyes: EOMI, nl conjunctiva, nl lids ENMT: nl external ears & nose, nl lips & teeth, nl nasal mucosa & septum Neck: non-tender, supple Respiratory: clear to auscultation, normal air movement Cardiovascular: nl pulses, regular rate and rhythm Gastrointestinal: bowel sounds, non-tender, soft Results Result Diagram: 07/12/1730 07/12/17 0530 Results 24 hrs Laboratory Tests Test 07/12/17 05:12 07/12/17 05:30 Lab Scanned Report BLOOD TRANSFUSION White Blood Count 25.5 #H Red Blood Count 2.77 L Hemoglobin 8.6 L Hematocrit 25.3 L Mean Corpuscular Volume 91.3 Mean Corpuscular Hemoglobin 31.0 Mean Corpuscular Hemoglobin Concent 34.0 Red Cell Distribution Width 17.9 H Platelet Count 55 #L Mean Platelet Volume 12.0 H Neutrophils % Segmented Neutrophils % (Manual) 82 H Band Neutrophils % (Manual) 12 H Lymphocytes % Lymphocytes % (Manual) 4 L Monocytes % Monocytes % (Manual) 1 Eosinophils % Eosinophils % (Manual) 1 Basophils % Nucleated Red Blood Cells % 0.0 Neutrophils # Neutrophils # (Manual) 21.7 H Band Neutrophils # 3.0 H Absolute Lymphocytes (Manual) 1.0 Lymphocytes # Monocytes # Absolute Monocytes (Manual) 0.2 L Eosinophils # Basophils # Nucleated Red Blood Cells # Platelet Estimate SIG DECREASED Polychromasia 3+ Poikilocytosis 3+ Anisocytosis 2+ Microcytosis 1+ Macrocytosis 1+ Sodium Level 148 H Potassium Level 3.3 L Chloride Level 114 H Carbon Dioxide Level 16 L Anion Gap 21 H Blood Urea Nitrogen 33 H Creatinine 1.57 H Glucose Level 162 Lactic Acid Level 3.0 *H Calcium Level 8.1 L Phosphorus Level 4.7 Magnesium Level 1.6 L Medications Medications Current Medications Ondansetron HCl 4 mg 4 mg Q6H PRN IV NAUSEA AND/OR VOMITING; Start 07/09/17 at 20:00 Morphine Sulfate/ Sodium Chloride (morphine) 100 ml @ 0 mls/hr TITRATE IV Last administered on 07/12/17 14:14; Admin Dose 3 MLS/HR; Start 07/12/17 at 09:30 Lorazepam (Ativan) 1 mg Q3H PRN IV SEDATION Last administered on 07/12/17 19: 01; Admin Dose 1 MG; Start 07/12/17 at 09:30 ALIYAH FENTON MD Jul 12, 2017 21:47
[2017-07-13 02:00] VITALS: BP 63/34; PULSE 123
--- NOTE | 2017-07-13 06:49 | EN ---
Date/Time of Note Date/Time of Note DATE: 07/13/17 TIME: 06:46 Event Note Medicine Medicine Event Note note I was called by nursing staff to pronounce Mrs. Ivy. On physical examination , she had no pulse, no gag or corneal reflex. She was unresponsive to pain. She was pronounced 6:40am on 07/13/2017. Several family members were at the bedside. JOHN FARRELL MD Jul 13, 2017 06:49
--- NOTE | 2017-07-13 10:54 | CONS ---
Date/Time of Note Date/Time of Note DATE: 07/13/17 TIME: 10:52 Consult Date/Type/Reason Admit Date/Time Jul 09, 2017 at 19:46 Initial Consult Date 07/11/17 Type of Consultation: GI Subjective now on comfort measures per palliative care notes. Objective Vital Signs Date Time Temp Pulse Resp B/P Pulse Ox O2 Delivery O2 Flow Rate FiO2 07/13/17 02:00 123 63/34 Non Rebreather 07/13/17 01:10 15.0 07/12/17 18:11 97.4 16 81 07/12/17 11:41 45 Intake and Output 07/12/17 07/12/17 07/13/17 15:00 23:00 07:00 Intake Total 239 ml 3 ml Balance 239 ml 3 ml Results/Medications Result Diagram: 07/12/17 0530 07/12/17 0530 Medications Current Medications Ondansetron HCl 4 mg 4 mg Q6H PRN IV NAUSEA AND/OR VOMITING; Start 07/09/17 at 20:00 Morphine Sulfate/ Sodium Chloride (morphine) 100 ml @ 0 mls/hr TITRATE IV Last administered on 07/12/17 14:14; Admin Dose 3 MLS/HR; Start 07/12/17 at 09:30 Lorazepam (Ativan) 1 mg Q3H PRN IV SEDATION Last administered on 07/12/17 19: 01; Admin Dose 1 MG; Start 07/12/17 at 09:30 Assessment/Plan Chief Complaint/Hosp Course 1. Nonoliguric acute kidney injury with unknown baseline creatinine. Etiology of acute kidney injury is secondary to acute tubular necrosis due to ischemic hyperperfusion and shock. The patient's renal function has been stable recently but nor further testing 2. Metabolic acidosis secondary to lactic acidosis and acute kidney injury. 3. Mineral bone disorder. Continue to monitor calcium and phosphorus levels. 4. Hypokalemia and hypomagnesemia. 5. Anemia, monitor hemoglobin and hematocrit levels. 6. Acute lower gastrointestinal bleed secondary to hemorrhoids. The patient is status post surgical ligation 7. Acute decompensated cirrhosis due to underlying varices and ascites. 8. Sepsis, status post shock secondary to pneumonia. 9. End-stage liver disease. Continue current medical management. Consider possible hospice evaluation. 10. Leukocytosis, etiology secondary to sepsis, recent prednisone use. 11. Possible ETOH hepatitis, will see prn. Problems: SELMA TRENT MD Jul 13, 2017 10:54
--- NOTE | 2017-07-14 14:44 | DS ---
Date/Time of Note Date/Time of Note DATE: 07/14/17 TIME: 14:44 Discharge Summary Admission/Discharge Info Admit Date/Time Jul 09, 2017 at 19:46 Discharge Date/Time Jul 13, 2017 at 06:20 Patient Condition: Critical Hx of Present Illness This is a 47-year-old female with a history of decompensated end-stage alcoholic liver disease/cirrhosis with ascites and esophageal varices, questionable autoimmune hepatitis who presented to the ER complaining of rectal bleeding, generalized weakness and jaundice. Patient was admitted at [facility] 2 weeks ago for rectal bleeding. EGD showed esophageal varices and as she is status post banding. For the past 2 days, she has been having bloody diarrhea and has been feeling weak. When she presented to the ER, she was hypotensive with a blood pressure of 75/ 47 with a heart rate of 105. She has a multiple lab abnormalities including WBC of 35,000, hemoglobin 7.8, creatinine 1.9, BUN 40, bicarb 16, INR 2.9, total bilirubin of almost 20 was direct bilirubin of 17, alk phos 357, AST 63, potassium 3.0. CT abdomen/pelvis shows massive ascites, large leiomyomatous uterus and bilateral patchy infiltrate of the lungs with probable superimposed pneumonia. Hospital Course /discharge diagnosis hepatic encephalopathy acute respiratory failure Septic shock, questionable GI source GI bleed, questionable esophageal varices Hemorrhoidal bleed Esophageal varices End-stage liver disease Elevated lactic acid Anion gap metabolic acidosis Acute kidney injury versus chronic kidney disease Elevated bilirubin Elevated AST Jaundice Alcoholism Patient is a 47-year-old female with a past medical history significant for alcoholic end-stage liver disease who has had a recent history of multiple ICU stays at multiple facilities as well as recent banding of her esophageal varices. Patient was admitted into the medicine service and sent to the ICU for GI bleed as well as septic shock requiring pressors. Over the course of his hospitalization patient continued to deteriorate and power of brim ironer hand spoke with palliative care who then stated that patient did not wish to be intubated and did not want any life prolonging measures done. As information was accurate with paperwork provided, patient will be placed on comfort measures, and patient at 0640 on July 13, 2017. Home Meds Reported Medications Furosemide* (Furosemide*) 20 Mg Tablet, 20 MG PO DAILY, #60 TAB 07/09/17 Lactulose* (Lactulose*) 20 Gm/30 Ml Solution, 20 GM PO BID, ML 07/09/17 Prednisone* (Prednisone*) 20 Mg Tab, 20 MG PO DAILY, TAB 07/09/17 Spironolactone* (Aldactone*) 25 Mg Tablet, 25 MG PO DAILY, #30 TAB 07/09/17 Multivitamins* (Theragran*) 1 Tab Tab, 1 TAB PO DAILY, TAB 07/09/17 Pantoprazole* (Pantoprazole*) 40 Mg Tablet., 40 MG PO AC BREAKFAST, TAB 07/09/17 Primary Care Provider Not On Staff Doctor Time spent on discharge: > 30 minutes ALIYAH KENNEDY Jul 14, 2017 14:44
== END 2017-07-13 06:20 | disposition expired | DRG 871 ==
LOC: E/R 12:14 → ICU 19:46 → MS2 07-12 17:50
PROVIDERS: ADMIT Internal Medicine; ATTEND Internal Medicine
PROC: 30243N1 Transfusion of Nonautologous Red Blood Cells into Central Vein, Percutaneous Approach (ICD-10-PCS; 2017-07-09)
PROC: 02HV33Z Insertion of Infusion Device into Superior Vena Cava, Percutaneous Approach (ICD-10-PCS; 2017-07-09)
PROC: B548ZZA Ultrasonography of Superior Vena Cava, Guidance (ICD-10-PCS; 2017-07-09)
PROC: 30243K1 Transfusion of Nonautologous Frozen Plasma into Central Vein, Percutaneous Approach (ICD-10-PCS; 2017-07-10)
PROC: 0DJ08ZZ Inspection of Upper Intestinal Tract, Via Natural or Artificial Opening Endoscopic (ICD-10-PCS; principal; 2017-07-10 23:00)
PROC: 5A09357 Assistance with Respiratory Ventilation, Less than 24 Consecutive Hours, Continuous Positive Airway Pressure (ICD-10-PCS; 2017-07-11)
PROC: 4A033R1 Measurement of Arterial Saturation, Peripheral, Percutaneous Approach (ICD-10-PCS; 2017-07-11)
PROC: 02HV33Z Insertion of Infusion Device into Superior Vena Cava, Percutaneous Approach (ICD-10-PCS; 2017-07-11)
PROC: B548ZZA Ultrasonography of Superior Vena Cava, Guidance (ICD-10-PCS; 2017-07-11)
DX: A41.9 Sepsis, unspecified organism (principal); K22.11 Ulcer of esophagus with bleeding; N17.0 Acute kidney failure with tubular necrosis; J96.00 Acute respiratory failure, unspecified whether with hypoxia or hypercapnia; R65.21 Severe sepsis with septic shock; I85.11 Secondary esophageal varices with bleeding; J18.9 Pneumonia, unspecified organism; E87.2 Acidosis; K76.6 Portal hypertension; Z66 Do not resuscitate; Z51.5 Encounter for palliative care; K31.89 Other diseases of stomach and duodenum; K70.31 Alcoholic cirrhosis of liver with ascites; Z87.891 Personal history of nicotine dependence; K75.4 Autoimmune hepatitis; F10.20 Alcohol dependence, uncomplicated; K70.11 Alcoholic hepatitis with ascites; K70.40 Alcoholic hepatic failure without coma; N18.9 Chronic kidney disease, unspecified; E87.6 Hypokalemia; D50.0 Iron deficiency anemia secondary to blood loss (chronic); K64.9 Unspecified hemorrhoids
CPT/HCPCS: 36415; 36430; 36569; 36600; 71010; 74176; 74181; 76775; 76937; 80048; 80053; 82105; 82140; 82270; 82803; 83605; 83735; 84100; 84484; 84703; 85014; 85018; 85025; 85610; 85730; 86255; 86644; 86850; 86900; 86901; 86920; 87040; 87075; 87081; 94640; 94660; 94664; 96374; 96375; 96376; C1769; C9113; J0692; J1630; J2060; J2270; J2354; J2405; J2543; J2920; J3010; J3370; J3480; J7030; J7040; J7060; P9016; P9047; P9059